=== PATIENT | male | born 1990 | race Caucasian/White ===

== ENCOUNTER 2016-08-04 09:43 | Inpatient (IN) | payer BC, OTHER ==
[~2016-08-04] VITALS: Ht 185.4 cm; Wt 63.5 kg
[~2016-08-04 09:43] MED LIST: DICY20TA28 PO; Gabapentin PO; HYDR-3895 PO; Ibuprofen PO; METH-33 PO; TRAZ-144 PO
[2016-08-04 11:15] VITALS: BP 109/63
[2016-08-04 12:00] VITALS: BP 109/63
[2016-08-04] MEDS ORDERED: MAGNESIUM HYDROXIDE 30 ML LIQUID UDC PO PRN (12:45)
[2016-08-04] MEDS ORDERED: DICYCLOMINE HCL 20 MG TABLET PO PRN (12:45)
[2016-08-04] MEDS ORDERED: MAG HYDROX/AL HYDROX/SIMETH 30 ML LIQUID UDC PO PRN (12:45)
[2016-08-04] MEDS ORDERED: ONDANSETRON ODT 4 MG TAB.RAPDIS SL PRN (12:45)
[2016-08-04] MEDS ORDERED: METHOCARBAMOL 750 MG TABLET PO PRN (12:45)
[2016-08-04] MEDS ORDERED: diphenhydrAMINE 50 MG CAPSULE PO PRN (12:45)
[2016-08-04] MEDS ORDERED: HYDROXYZINE PAMOATE 25 MG CAPSULE PO PRN (12:45)
[2016-08-04] MEDS ORDERED: PROMETHAZINE HCL 25 MG/1 ML VIAL IM PRN (12:45)
[2016-08-04] MEDS ORDERED: LORAZEPAM 1 MG TABLET PO PRN (12:45)
[2016-08-04] MEDS ORDERED: LORAZEPAM 2 MG/1 ML VIAL IM PRN (12:45)
[2016-08-04] MEDS ORDERED: CLONIDINE HCL 0.1 MG TABLET PO PRN (12:45)
[2016-08-04] MEDS ORDERED: MIRALAX 17 GM POWD.PACK PO PRN (12:45)
[2016-08-04] MEDS ORDERED: LOPERAMIDE HCL 2 MG CAPSULE PO PRN ×2 (12:45)
[2016-08-04] MEDS: GABAPENTIN 300 MG CAPSULE PO SCH ×2 (14:38→20:14)
[2016-08-04] MEDS: IBUPROFEN 600 MG TABLET PO PRN (14:39)
[2016-08-04] MEDS: BUPRENORPHINE HCL 2 MG TAB.SUBL SL PRN (14:39)
[2016-08-04] MEDS: LORAZEPAM 1 MG TABLET PO PRN ×2 (14:39→20:14)
[2016-08-04 16:00] VITALS: BP 122/69
[2016-08-04 16:30] LABS: *AMPHETAMINE, URINE NEGATIVE (NEGATIVE); *BARBITURATE, URINE NEGATIVE (NEGATIVE); *CANNABINOID, URINE POSITIVE (NEGATIVE); *COCCAINE, URINE NEGATIVE (NEGATIVE); *OPIATE, URINE POSITIVE (NEGATIVE); *PHENCYCLIDINE SCREEN,URINE NEGATIVE (NEGATIVE)
[2016-08-04 17:43] LABS: ETHANOL < 3 MG/DL (0-0)
[2016-08-04 17:44] LABS: ALANINE AMINOTRANSFERASE 22 U/L (16-63); ALBUMIN 4.6 g/dL (3.4-5.0); ALKALINE PHOSPHATASE 71 U/L (50-136); ASPARTATE AMINOTRANSFERASE 18 U/L (15-37); BILIRUBIN,TOTAL 0.6 mg/dL (0.2-1.0); CALCIUM 9.4 mg/dL (8.5-10.1); CARBON DIOXIDE 29 mmol/L (21-32); CHLORIDE 103 mmol/L (98-107); CREATININE 1.1 mg/dL (0.6-1.3); GFR 81 mL/min (>60); GLUCOSE 107 mg/dL (74-106); MAGNESIUM 2.1 mg/dL (1.8-2.4); POTASSIUM 4.6 mmol/L (3.5-5.1); SODIUM SERUM 140 mmol/L (136-145); TOTAL PROTEIN, SERUM 7.9 g/dL (6.4-8.2); UREA NITROGEN, BLOOD 15 mg/dL (7-18)
[2016-08-04 17:48] LABS: THYROID STIMULATING HORMONE 0.029 mIU/mL (0.358-3.740)
[2016-08-04 17:50] LABS: HIV-1 p24 ANTIGEN NON REACTIVE (NONREACTIVE); HIV-1/2 ANTIBODY NON REACTIVE (NONREACTIVE)
[2016-08-04 18:30] LABS: BASOPHILS % (AUTO) 0.4 % (0.0-2.0); EOSINOPHILS # (AUTO) 0.1 K/uL (0.0-0.7); EOSINOPHILS % (AUTO) 0.7 % (0.0-7.0); HEMATOCRIT 44.5 % (40.0-50.0); HEMOGLOBIN 14.4 g/dL (14.0-18.0); LYMPHOCYTES # (AUTO) 2.1 K/uL (0.8-4.8); LYMPHOCYTES % (AUTO) 22.8 % (20.5-51.5); MEAN CORPUSCULAR HEMOGLOBIN 27.5 uug (27.0-31.0); MEAN CORPUSCULAR HGB CONC 32 g/dL (32.0-37.0); MEAN CORPUSCULAR VOLUME 85.3 fL (82.0-92.0); MONOCYTES # (AUTO) 0.5 K/uL (0.1-1.30); MONOCYTES % (AUTO) 5.4 % (0.0-11.0); NEUTROPHILS # (AUTO) 6.3 K/uL (1.8-8.9); NEUTROPHILS % (AUTO) 70.7 % (38.5-71.5); PLATELET COUNT (AUTO) 274 K/uL (150-450); RED BLOOD CELL COUNT(AUTO) 5.22 MIL/uL (4.70-6.10); RED CELL DISTRIBUTION WIDTH 12.3 % (11.5-14.5)
[2016-08-04 20:00] VITALS: BP 99/60
[2016-08-04] MEDS: ACETAMINOPHEN 325 MG TABLET PO PRN (20:14)
[2016-08-04] MEDS ORDERED: TRAZODONE 50 MG TABLET PO SCH (22:15)
[2016-08-04] MEDS ORDERED: TRAZODONE 50 MG TABLET PO ONE (22:15)
[2016-08-04] MEDS ORDERED: TRAZODONE 50 MG TABLET ONE (22:28)
[2016-08-05 08:00] VITALS: BP 94/60
[2016-08-05] MEDS ORDERED: TUBERCULIN,PURIF.PROT.DERIV. 5 TU/0.1 ML TEST ID ONE (09:00)
[2016-08-05] MEDS: GABAPENTIN 300 MG CAPSULE PO SCH ×3 (09:04→20:26)
[2016-08-05] MEDS: MULTIVITAMINS,THERAPEUTIC TABLET PO SCH (09:05)
[2016-08-05] MEDS: IBUPROFEN 600 MG TABLET PO PRN ×2 (09:05→15:40)
[2016-08-05] MEDS: BUPRENORPHINE HCL 2 MG TAB.SUBL SL PRN (09:05)
[2016-08-05 12:00] VITALS: BP 111/73
[2016-08-05] MEDS ORDERED: TRAZODONE 50 MG TABLET PO PRN (12:15)
[2016-08-05] MEDS ORDERED: CYANOCOBALAMIN 1000 MCG/ML VIAL IM ONE (15:00)
[2016-08-05 15:10] LABS: *AMPHETAMINE, URINE NEGATIVE (NEGATIVE); *BARBITURATE, URINE NEGATIVE (NEGATIVE); *CANNABINOID, URINE POSITIVE (NEGATIVE); *COCCAINE, URINE NEGATIVE (NEGATIVE); *OPIATE, URINE POSITIVE (NEGATIVE); *PHENCYCLIDINE SCREEN,URINE NEGATIVE (NEGATIVE)
[2016-08-05] MEDS: DICYCLOMINE HCL 20 MG TABLET PO SCH ×2 (15:40→20:26)
[2016-08-05] MEDS: BACLOFEN 20 MG TABLET PO SCH ×2 (15:40→21:00)
[2016-08-05] MEDS: CLONIDINE HCL 0.1 MG TABLET PO SCH ×2 (15:40→21:00)
[2016-08-05 16:00] VITALS: BP 112/63
[2016-08-05 20:00] VITALS: BP 105/59
[2016-08-05] MEDS ORDERED: Baclofen PO (20:37)
[2016-08-05] MEDS ORDERED: CLON0.1T14 PO (20:37)
[2016-08-05] MEDS ORDERED: Ibuprofen PO (20:37)
[2016-08-05] MEDS: ACETAMINOPHEN 325 MG TABLET PO PRN (23:05)
[2016-08-06 08:00] VITALS: BP 111/79
[2016-08-06] MEDS: DICYCLOMINE HCL 20 MG TABLET PO SCH (09:04)
[2016-08-06] MEDS: GABAPENTIN 300 MG CAPSULE PO SCH (09:04)
[2016-08-06 09:05] VITALS: BP 111/75
[2016-08-06] MEDS: BACLOFEN 20 MG TABLET PO SCH (09:05)
[2016-08-06] MEDS: MULTIVITAMINS,THERAPEUTIC TABLET PO SCH (09:05)
[2016-08-06] MEDS: CLONIDINE HCL 0.1 MG TABLET PO SCH (09:05)
[2016-08-06 16:20] LABS: HCV AB <0.1 s/co ratio (0.0-0.9); HEPATITIS B CORE AB, IgM Negative (Negative); HEPATITIS B SURFACE AG Negative (Negative)
== END 2016-08-06 09:55 | disposition other institution (70) | DRG 895 ==
LOC: SRC 10:23
PROVIDERS: ADMIT Internal Medicine; ATTEND Internal Medicine
PROC: HZ2ZZZZ Detoxification Services for Substance Abuse Treatment (ICD-10-PCS; principal; 2016-08-04)
PROC: HZ31ZZZ Individual Counseling for Substance Abuse Treatment, Behavioral (ICD-10-PCS; 2016-08-05)
PROC: HZ41ZZZ Group Counseling for Substance Abuse Treatment, Behavioral (ICD-10-PCS; 2016-08-06)
DX: F11.23 Opioid dependence with withdrawal (principal); F13.239 Sedative, hypnotic or anxiolytic dependence with withdrawal, unspecified; F17.210 Nicotine dependence, cigarettes, uncomplicated; G47.00 Insomnia, unspecified; F41.9 Anxiety disorder, unspecified; F12.10 Cannabis abuse, uncomplicated; F32.9 Major depressive disorder, single episode, unspecified; E07.81 Sick-euthyroid syndrome; Z91.89 Other specified personal risk factors, not elsewhere classified
CPT/HCPCS: 36415; 70030-TC; 71010; 80307; 80346; 80349; 80361; 83735; 84443; 85025; 86580; 86592; 86705; 86803; 87340; 87806; A4663; G6040-TC; J3420

== ENCOUNTER 2016-09-24 17:48 | Inpatient (IN) | payer BC, OTHER ==
[~2016-09-24] VITALS: Ht 175.3 cm; Wt 76.2 kg
[~2016-09-24 17:48] MED LIST changes: +Baclofen PO; +CLON0.1T14 PO
[2016-09-24 19:42] VITALS: BP 128/76
--- NOTE | 2016-09-24 19:42 | NUR ---
ADMISSION NOTE Weight:168 lbs; Height: 5.9 VS: BP: 128/76; P: 95; Room Air O2Sat: 100%; RR:19; Pain 8-9 by 0-10 pain scale Allergy to Cat Full Code; Regular Diet; Fall and Seizures Precautions Patient is a 26 old male admitted to [facility] on 09/24/16 at 19:42 for Opioid Dependence. Patient reports History of Benzodiazepine withdrawal seizures. Past hospitalization/treatment was done in the [facility] on July,; [facility] on 06/07/2012 due to heroin overdose, requiring the use Narcan. The longest attempt at sobriety being for 8 months that ended nine months ago. Patient reports his participation on treatments at [facility] on 07/23/16-07/28/16. [facility]. Patient unable recall dates. Past Medical History: Anxiety Disorder; Depressive disorder; Chronic tobacco use; Opioid use disorder; Anxiolytic use disorder; Insomnia; History of Benzodiazepine withdrawal seizures; History of accidental polysubstance overdose. Past Surgical History: Right meniscus repair; Right ankle surgery. Substance use: Heroin smoke: " Current using 1 gram daily for the last three years of tar heroin via smoke inhalation. Last consumed this amount on 09/24/16 at 03:00". Patient also reports a Tobacco dependence. Upon initial assessment patient is alert and oriented x4. Stable gait. Speech soft and clear. Patient denies SI/HI. Patient is cooperative. COWS 10. Patient c/o anxiety; nervousness; tremors that felt; sweating, agitation, muscle aches, generalized pain, anhedonia, and fatigue. Patient denies N/V, and diarrhea. Patient c/o aching pain on his back 8-9 by 0-10 pain scale started at 19:00. Doctor Jhonny Barrera MD assessed patient. Ordered UDS test unable collected because patient can't voided at this time. Patient encouraged to increase PO fluid intake as tolerated. Breathing is even and unlabored. Lung Sounds clear bilaterally. Heart Rate is regular: no murmur noted. Patient denies SOB/heart pain. Skin is intact, warm and dry. BS is active in all x4 quadrants. Last BM was 09/24/16 in the morning. Skin is intact, warm and moist by touch. Patient oriented to floor and room, explained how to use call light. Patient verbalizing understanding. All safety measures in the place by hospital policy: Call light within reach; bed locked and in the lowest position; padded rails up x 2. Will continue to monitor.
[2016-09-24] MEDS ORDERED: MAGNESIUM HYDROXIDE 30 ML LIQUID UDC PO PRN (21:15)
[2016-09-24] MEDS ORDERED: diphenhydrAMINE 50 MG CAPSULE PO PRN (21:15)
[2016-09-24] MEDS ORDERED: ACETAMINOPHEN 325 MG TABLET PO PRN (21:15)
[2016-09-24] MEDS ORDERED: ONDANSETRON ODT 4 MG TAB.RAPDIS SL PRN (21:15)
[2016-09-24] MEDS ORDERED: LOPERAMIDE HCL 2 MG CAPSULE PO PRN ×2 (21:15)
[2016-09-24] MEDS ORDERED: MAG HYDROX/AL HYDROX/SIMETH 30 ML LIQUID UDC PO PRN (21:15)
[2016-09-24] MEDS ORDERED: DICYCLOMINE HCL 20 MG TABLET PO PRN (21:15)
[2016-09-24] MEDS ORDERED: MIRALAX 17 GM POWD.PACK PO PRN (21:15)
[2016-09-24] MEDS ORDERED: IBUPROFEN 600 MG TABLET PO PRN (21:15)
[2016-09-24] MEDS ORDERED: BUPRENORPHINE HCL 2 MG TAB.SUBL SL PRN (21:15)
[2016-09-24] MEDS ORDERED: ONDANSETRON 4 MG/2 ML VIAL IM PRN (21:15)
--- NOTE | 2016-09-24 21:25 | NUR ---
PRN BENADRYL PO ADMINISTRATION Patient c/o insomnia. Patient was assessed. Ordered PRN Benadryl PO was discussed with patient. Patient's educated for actions, adverse reactions, and side effects of Benadryl. Patient returned her knowledge back by verbalizing understanding. PRN Benadryl PO was administrated as ordered with full glass of water. Patient tolerated well. Safety measures in the place by hospital policy: Call light within reach; Bed in the lowest position and locked; Padded rails up x2. Will to monitor closely.
[2016-09-24] MEDS ORDERED: BUPRENORPHINE HCL 2 MG TAB.SUBL SL SCH (22:00)
[2016-09-24 22:03] LABS: BASOPHILS # (AUTO) 0.1 K/uL (0.0-8.0); BASOPHILS % (AUTO) 0.6 % (0.0-2.0); EOSINOPHILS # (AUTO) 0.2 K/uL (0.0-0.7); EOSINOPHILS % (AUTO) 2.5 % (0.0-7.0); HEMATOCRIT 42.9 % (40-50); HEMOGLOBIN 14.8 G/DL (14.0-18.0); LYMPHOCYTES # (AUTO) 2.8 K/uL (20.0-40.0); LYMPHOCYTES % (AUTO) 30.8 % (20.5-51.5); MEAN CORPUSCULAR HEMOGLOBIN 29.3 UUG (27.0-31.0); MEAN CORPUSCULAR HGB CONC 35 g/dL (32.0-37.0); MEAN CORPUSCULAR VOLUME 84.8 FL (82.0-92.0); MONOCYTES # (AUTO) 0.6 K/uL (2.0-10.0); MONOCYTES % (AUTO) 6.1 % (0.0-11.0); NEUTROPHILS # (AUTO) 5.3 K/uL (1.8-8.9); PLATELET COUNT (AUTO) 195 K/UL (150-450); RED BLOOD CELL COUNT(AUTO) 5.06 MIL/UL (4.7-6.1); RED CELL DISTRIBUTION WIDTH 12.2 % (11.5-14.5)
--- NOTE | 2016-09-24 22:25 | NUR ---
REASSESSMENT Patient is sleeping. Breathing is unlabored and even. RR:16. PRN Benadryl PO was effective. Safety measures in the place by hospital policy: Call light within reach; Bed in the lowest position and locked; Padded rails up x2. Will to monitor closely.
[2016-09-24 22:33] LABS: ETHANOL < 3 MG/DL (0-0)
[2016-09-24 22:34] LABS: ALANINE AMINOTRANSFERASE 21 U/L (16-63); ALKALINE PHOSPHATASE 59 U/L (50-136); AMYLASE 65 U/L (25-115); ASPARTATE AMINOTRANSFERASE 18 U/L (15-37); BILIRUBIN,TOTAL 0.3 mg/dL (0.2-1.0); CALCIUM 9.1 mg/dL (8.5-10.1); CARBON DIOXIDE 33 mmol/L (21-32); CHLORIDE 106 mmol/L (98-107); CREATININE 0.9 mg/dL (0.6-1.3); GFR 102 mL/min (>60); GLUCOSE 106 mg/dL (74-106); LIPASE 86 U/L (73-393); MAGNESIUM 1.9 mg/dL (1.8-2.4); POTASSIUM 4.2 mmol/L (3.5-5.1); SODIUM SERUM 143 mmol/L (136-145); TOTAL PROTEIN, SERUM 7.2 g/dL (6.4-8.2); UREA NITROGEN, BLOOD 7 mg/dL (7-18)
[2016-09-24] MEDS: HYDROXYZINE PAMOATE 25 MG CAPSULE PO PRN (22:39)
[2016-09-24] MEDS: METHOCARBAMOL 750 MG TABLET PO PRN (22:39)
--- NOTE | 2016-09-24 22:39 | NUR ---
PRN ROBAXIN PO AND PRN VISTARIL PO ADMINISTRATION Patient c/o increased anxiety and muscles spasm. Patient was assessed. Ordered PRN Robaxin PO and PRN Vistaril PO was discussed with patient. Patient's educated for actions, adverse reactions, and side effects of Robaxin and Vistaril . Patient returned her knowledge back by verbalizing understanding. PRN Robaxin PO and PRN Vistaril PO was administrated as ordered with full glass of water. Patient tolerated well. Safety measures in the place by hospital policy: Call light within reach; Bed in the lowest position and locked; Padded rails up x2. Will to monitor closely.
[2016-09-24 22:41] LABS: *AMPHETAMINE, URINE NEGATIVE (NEGATIVE); *BARBITURATE, URINE NEGATIVE (NEGATIVE); *CANNABINOID, URINE POSITIVE (NEGATIVE); *COCCAINE, URINE NEGATIVE (NEGATIVE); *OPIATE, URINE POSITIVE (NEGATIVE); *PHENCYCLIDINE SCREEN,URINE NEGATIVE (NEGATIVE)
[2016-09-24 22:45] LABS: HIV-1 p24 ANTIGEN NON REACTIVE (NONREACTIVE); HIV-1/2 ANTIBODY NON REACTIVE (NONREACTIVE); THYROID STIMULATING HORMONE 0.163 mIU/mL (0.358-3.740)
--- NOTE | 2016-09-24 23:39 | NUR ---
REASSESSMENT Patient is sleeping. Breathing is unlabored and even. RR: 14. PRN Benadryl PO was effective. Safety measures in the place by hospital policy: Call light within reach; Bed in the lowest position and locked; Padded rails up x2. Will to monitor closely.
[2016-09-25] VITALS: BP 125/74
[2016-09-25 04:00] VITALS: BP 121/74
--- NOTE | 2016-09-25 07:38 | NUR ---
END OF SHIFT NOTE Patient is a 26 old male admitted to [facility] on 09/24/16 at 19:42 for Opioid Dependence., placed on 5 Day Subutex starting on 09/25/16. Allergy to Cat dander; grass pollen. Full Code; Regular Diet; Fall and Seizures Precautions. Patient reports History of Benzodiazepine withdrawal seizures. Past hospitalization/treatment was done in the [facility] on July,; [facility] on 06/07/2012 due to heroin overdose, requiring the use Narcan. The longest attempt at sobriety being for 8 months that ended nine months ago. Patient reports his participation on treatments at [facility] on 07/23/16-07/28/16. [facility] [place]. Patient unable recall dates. Past Medical History: Anxiety Disorder; Depressive disorder; Chronic tobacco use; Opioid use disorder; Anxiolytic use disorder; Insomnia; History of Benzodiazepine withdrawal seizures; History of accidental polysubstance overdose. Past Surgical History: Right meniscus repair; Right ankle surgery. Substance use: Heroin smoke: " Current using 1 gram daily for the last three years of tar heroin via smoke inhalation. Last consumed this amount on 09/24/16 at 03:00". Patient also reports a Tobacco dependence. Patient denies SI/HI. Patient is cooperative.COWS decreased from 10 to 6. Patient presented with anxiety; agitation, nervousness; tremors that felt; sweating, muscle aches, generalized pain, anhedonia, and fatigue. Patient denies N/V, and diarrhea. Doctor Jhonny Barrera MD assessed patient. Patient encouraged to increase PO fluid intake as tolerated. Skin is intact, warm and moist by touch. PRN Benadryl PO, PRN Robaxin PO, PRN Vistaril PO were effective. Patient slept 10 hours, intake 500 ml, voided x2. Patient was encouraged fluids intake. Safety measure in the place by hospital policy: Call light within reach, bed in the lowest position and locked, padded rails up x2. Patient endorsed to day shift nurse in stable condition. SBAR report given.
--- NOTE | 2016-09-25 07:55 | NUR ---
START OF SHIFT Rcvd client in room, he is A/O x 4, he presents with anxious mood, flat affect, he reports chills, fatigue, clammy skin, goose bumps he denies nausea, vomiting or diarrhea. He denies any SI/HI. Encouraged increased fluid intake and activity as tolerated. Encouraged group therapy attendance. Per night time nanny nurse, client is a 26 year old male admitted for withdrawal from opioids. He is on modified 4 day Subutex, first dose today @ [address]. PMH Anxiety, Depression, Chronic tobacco use, Opioid use disorder, Anxiolytic use disorder, Cannabis use, unspecified, insomnia, History of withdrawal induced seizures, History of accidental polysubstance overdose. Last COWS 2 @ 0400. PRN Benadryl for inability to sleep, he slept 10 hrs. Robaxin generalized muscle pain, Vistaril for anxiety, noted effective. He is full code, regular diet, Allergies to cat dander, grass pollen. Client is on seizure precautions. Side rails X 2 up/padded, call light within reach, bed locked in lowest positions. Will continue with plan of care
[2016-09-25] MEDS: MULTIVITAMINS,THERAPEUTIC TABLET PO SCH (08:32)
[2016-09-25] MEDS: GABAPENTIN 300 MG CAPSULE PO SCH ×3 (08:32→20:00)
--- NOTE | 2016-09-25 08:33 | NUR ---
TB test administered to Left F/A, client tolerated well.
[2016-09-25 08:38] VITALS: BP 113/75
[2016-09-25] MEDS: METHOCARBAMOL 750 MG TABLET PO PRN ×2 (08:41→21:58)
[2016-09-25] MEDS: CLONIDINE HCL 0.1 MG TABLET PO PRN (08:41)
--- NOTE | 2016-09-25 08:41 | NUR ---
PRN Clonidine, Robaxin Client appears irritable, reports anxiety, chills and generalized muscle pain 8/10, Above meds given respectively. Call light within reach. Will continue to monitor.
[2016-09-25] MEDS ORDERED: TUBERCULIN,PURIF.PROT.DERIV. 5 TU/0.1 ML TEST ID ONE (09:00)
[2016-09-25] MEDS ORDERED: BUPRENORPHINE HCL 2 MG TAB.SUBL SL SCH (09:00)
--- NOTE | 2016-09-25 09:41 | NUR ---
Reassessment PRN Clonidine, Sumanth Client appears less irritable, He stated 'I feel a little bit better, less anxious" generalized muscle pain 2/10, but tolerable. Above meds effective. Call light within reach. Will continue to monitor.
[2016-09-25] MEDS ORDERED: LORAZEPAM 2 MG/1 ML VIAL IM PRN (11:30)
[2016-09-25] MEDS ORDERED: LORAZEPAM 1 MG TABLET PO PRN ×2 (11:30)
[2016-09-25 12:00] VITALS: BP 116/68
[2016-09-25] MEDS: BUPRENORPHINE HCL 2 MG TAB.SUBL SL SCH ×3 (12:15→20:00)
[2016-09-25] MEDS: LORAZEPAM 1 MG TABLET PO SCH ×3 (12:15→19:59)
--- NOTE | 2016-09-25 15:23 | NUR ---
START OF SHIFT [facility] client in room, he is A/O x 4, he presents with anxious mood, flat affect, he reports chills, fatigue, clammy skin, goose bumps he denies nausea, vomiting or diarrhea. He denies any SI/HI. Encouraged increased fluid intake and activity as tolerated. Encouraged group therapy attendance. Per night auditor nurse, client is a 26 year old male admitted for withdrawal from opioids. He is on modified 4 day Subutex, first dose today @ [address]125. PMH Anxiety, Depression, Chronic tobacco use, Opioid use disorder, Anxiolytic use disorder, Cannabis use, unspecified, insomnia, History of withdrawal induced seizures, History of accidental polysubstance overdose. Last COWS 2 @ 0400. PRN Benadryl for inability to sleep, he slept 10 hrs. Robaxin generalized muscle pain, Vistaril for anxiety, noted effective. He is full code, regular diet, Allergies to cat dander, grass pollen. Client is on seizure precautions. Side rails X 2 up/padded, call light within reach, bed locked in lowest positions. Will continue with plan of care Addendum: 09/25/16 at 1524 by MIGUEL LUNA RN wrong time
[2016-09-25 16:34] VITALS: BP 109/60
--- NOTE | 2016-09-25 19:06 | NUR ---
END OF SHIFT Endorsed client to incoming nurse, he is in room, he is A/O x 4, he presents with depressed mood, flat affect, he denies nausea, vomiting or diarrhea. He denies any SI/HI. Adequate intake 1545mL and output void x 2, stool x 2. Client was not compliant with group therapy. Admitted for withdrawal from opioids. He is on modified 4 day Subutex, 5 day Ativan, tolerating well. History of withdrawal induced seizures. Last COWS 8/CIWA 7 @ 1600. PRN Robaxin 750mg muscle pain, Clonidine for anxiety, noted effective. He is full code, regular diet, Allergies to cat dander, grass pollen. Client is on seizure precautions. Side rails X 2 up/padded, call light within reach, bed locked in lowest positions.
--- NOTE | 2016-09-25 19:06 | NUR ---
START OF SHIFT NOTE Patient endorsed by day shift nurse,KADI report received Patient is a 26 old male admitted to [facility] on 09/24/16 at 19:42 for Opioid Dependence., placed on 5 Day Ativan and 5 Day Subutex Taper since on 09/25/16. First dose of Ativan PO given as ordered 09/25/16 at 12:00. First dose of Subutex PO given 09/25/16 at 09:00. Patient tolerated well. Patient reported Allergy to Cat dander and Grass Pollen. Patient placed on Full Code; Regular Diet; Fall and Seizures Precautions. Patient reports History of Benzodiazepine withdrawal seizures. Past hospitalization/treatment was done in the [facility] on July,; [facility] on 06/07/2012 due to heroin overdose, requiring the use Narcan. The longest attempt at sobriety being for 8 months that ended nine months ago. Patient reports his participation on treatments at [facility] on 07/23/16-07/28/16. [facility]. Patient unable recall dates. Past Medical History: Anxiety Disorder; Depressive disorder; Chronic tobacco use; Opioid use disorder; Anxiolytic use disorder; Insomnia; History of Benzodiazepine withdrawal seizures; History of accidental polysubstance overdose. Past Surgical History: Right meniscus repair; Right ankle surgery. Substance use: Heroin smoke: " Current using 1 gram /Day for the last three years of tar heroin via smoke inhalation. Last consumed this amount on 09/24/16 at 03:00". Patient also reports a Alprazolam PO "2 MG/day during last 6 weeks. Last use on 09/23/16". Patient denies SI/HI. Patient is cooperative. COWS 8, CIWA 7. Patient's anxiety; agitation, nervousness; tremors that felt; sweating, muscle aches, generalized pain, nausea, fatigue. Patient denies vomiting, and diarrhea. Patient encouraged to attend activities, and to increasing oral fluids. All safety measures in the place by hospital policy: Call light within reach; bed locked and in the lowest position; padded rails up x 2. Will continue to monitor.
[2016-09-25 20:00] VITALS: BP 110/64
--- NOTE | 2016-09-25 21:13 | NUR ---
PRN ZOFRAN PO ADMINISTRATION Patient c/o N/Vx2. Patient was assessed. VS WNL:T:98'6; HR:86; BP:108/64; RR:18. Ordered PRN Zofran PO was discussed with patient. Patient's educated for actions, adverse reactions, and side effects of Zofran. Patient returned her knowledge back by verbalizing understanding. PRN Zofran PO was administrated as ordered with full glass of water. Patient tolerated well. Safety measures in the place by hospital policy: Call light within reach. Bed in the lowest position and locked.Padded rails up x2. Will to monitor closely.
[2016-09-25] MEDS: HYDROXYZINE PAMOATE 25 MG CAPSULE PO PRN (21:58)
[2016-09-25] MEDS: TRAZODONE 50 MG TABLET PO PRN (21:58)
--- NOTE | 2016-09-25 21:58 | NUR ---
PRN ROBAXIN PO , PRN VISTARIL PO, AND PRN TRAZODONE PO ADMINISTRATION Patient c/o increased anxiety, muscles spasm, and insomnia. Patient was assessed. VS WNL. Ordered PRN Robaxin PO ,PRN Vistaril PO, and PRN Trazodone PO was discussed with patient. Patient's educated for actions, adverse reactions, and side effects of Robaxin,Vistaril, and Trazodone. Patient returned her knowledge back by verbalizing understanding. PRN Robaxin PO, PRN Vistaril PO,and PRN Trazodone PO administrated as ordered with full glass of water. Patient tolerated well. Safety measures in the place by hospital policy: Call light within reach; Bed in the lowest position and locked; Padded rails up x2. Will to monitor closely.
--- NOTE | 2016-09-25 22:15 | NUR ---
REASSESSMENT Patient reassessed. Nausea and emesis ceased. Patient encouraged to drink plenty fluids. Safety measures in the place by hospital policy: Call light within reach; Bed in the lowest position and locked; Padded rails up x2. Will to monitor closely.
--- NOTE | 2016-09-25 22:58 | NUR ---
REASSESSMENT Patient is sleeping. Breathing is unlabored and even. RR: 16. PRN Robaxin PO, PRN Vistaril PO, and PRN Trazodone PO were effective. Safety measures in the place by hospital policy: Call light within reach; Bed in the lowest position and locked; Padded rails up x2. Will to monitor closely.
--- NOTE | 2016-09-26 | NUR ---
VS/COWS/CIWA Deferred Assessment deferred d/t patient refusal, patient is sleeping. No S/S of distress noted. Breathing is unlabored and even. Safety measure in the place by hospital policy: Call light within reach, bed in the lowest position and locked, padded rails up x2. Will continue to monitor.
[2016-09-26 04:00] VITALS: BP 90/45
--- NOTE | 2016-09-26 07:16 | NUR ---
END OF SHIFT NOTE Patient is a 26 old male admitted to [facility] on 09/24/16 at 19:42 for Benzodiazepines and Opioid Withdrawal, placed on 5 Day Subutex on 09/25/16. Allergy to Cat dander and Grass Pollen. Full Code; Regular Diet; Fall and Seizures Precautions. History of Benzodiazepine withdrawal seizures. Past Hospitalization/Treatment was done in the [facility] on July,; [facility] on 06/07/2012 due to heroin overdose, requiring the use Narcan. The longest attempt at sobriety being for 8 months that ended nine months ago. Treatments at [facility] on 07/23/16-07/28/16. [facility] Patient unable recall dates. PMH: Anxiety; Depressive disorder; Chronic tobacco use; Opioid use disorder; Anxiolytic use disorder; Insomnia; History of Benzodiazepine withdrawal seizures; History of accidental polysubstance overdose. Past Surgical History: Right meniscus repair; Right ankle surgery. Substance use: Heroin smoke: " Current using 1 gram/Day since 2013. Last three years of tar heroin via smoke inhalation. Last use 0.5 grams on 09/24/16 at 03:00". Patient also reports a Tobacco dependence. Patient denies SI/HI. Patient is cooperative. COWS decreased from 7 @ 20:00 to 5 @ 04:00.CIWA decreased from 7@ 20:00 to 4 @ 04:00. Patient attended group activities Patient presented with anxiety; agitation, nervousness; N/V, stomach cramps, sweating, muscle aches, very mild headache. Patient denied diarrhea. Patient encouraged to increase PO fluid intake as tolerated. Patient denied SI/HI. VS at 04:00: BP: 93/58; HR: 58; O2Sat: 96%; RR: 12. Pain Level : "0/10". Skin is intact, warm and moist by touch. Patient attended activities. PRN Trazodone PO, PRN Robaxin PO, PRN Vistaril PO, and PRN Zofran PO were effective. Patient remains compliant with therapeutic plan, medications, and diet regime. Patient slept 7 hours, intake 474ml, voided x2. All needs met. Safety measures in the place by hospital policy: Call light within reach, bed in the lowest position and locked, padded rails up x2. Patient endorsed to day shift nurse in stable condition. SBAR report given.
--- NOTE | 2016-09-26 07:45 | NUR ---
START OF SHIFT Rcvd client in room, he is A/O x 4, he presents with anxious mood,he reports sweats, restless legs, decreased appetite, he denies nausea, vomiting or diarrhea. He denies any SI/HI. Encouraged increased fluid intake and activity as tolerated. Encouraged group therapy attendance. Per date night caregiver nurse, client is a 26 year old male admitted for withdrawal from opioids. He is on modified 4 day Subutex/ 5 day Ativan, tolerating well. History of withdrawal induced seizures. Last COWS 5/CIWA 4 @ 0400. PRN Trazodone for inability to sleep, he slept 7 hrs. Robaxin generalized muscle pain, Vistaril for anxiety, noted effective. He is full code, regular diet, Allergies to cat dander, grass pollen. Client is on seizure precautions. Side rails X 2 up/padded, call light within reach, bed locked in lowest positions. Will continue with plan of care
[2016-09-26] MEDS: BUPRENORPHINE HCL 2 MG TAB.SUBL SL SCH ×3 (08:36→20:04)
[2016-09-26] MEDS: GABAPENTIN 300 MG CAPSULE PO SCH ×3 (08:36→20:05)
[2016-09-26] MEDS: LORAZEPAM 1 MG TABLET PO SCH ×4 (08:36→20:05)
[2016-09-26] MEDS: MULTIVITAMINS,THERAPEUTIC TABLET PO SCH (08:36)
[2016-09-26] MEDS: ESCITALOPRAM OXALATE 10 MG TABLET PO SCH (08:36)
[2016-09-26 08:38] VITALS: BP 121/78
[2016-09-26 08:43] LABS: CALCIUM 9.3 mg/dL (8.5-10.1); MAGNESIUM 1.9 mg/dL (1.8-2.4); POTASSIUM 4.2 mmol/L (3.5-5.1)
[2016-09-26] MEDS ORDERED: BUPRENORPHINE HCL 2 MG TAB.SUBL SL SCH ×2 (09:00→15:00)
[2016-09-26 10:03] LABS: THYROID STIMULATING HORMONE 0.054 mIU/mL (0.358-3.740)
[2016-09-26 10:10] LABS: HCV AB <0.1 s/co ratio (0.0-0.9); HEPATITIS B CORE AB, IgM Negative (Negative); HEPATITIS B SURFACE AG Negative (Negative)
[2016-09-26 12:00] VITALS: BP 136/69
--- NOTE | 2016-09-26 14:02 | NUR ---
MD COMMUNICATION/CRISIS TEAM NOTIFICATION Patient was on the phone with his sister and corrections caseworker Breanna as a witness. Pt got agitated with his sister because she was encouraging him to go to treatment. He told his sister "consider this my last goodbye" and hung up the phone. He then turned and said to corrections caseworker "I'm leaving now. You can either let me off the unit with my things or find me in my room. The choice is yours." physiotherapy practice manager immediately contacted charge nurse and SERVICE STATION MANAGER type disk quality control supervisor, and administrative staff, and medical doctors. Pt is on a 1:1. Dr. Napier notified and reported to call CRISIS team. Lisa from Crisis team notified and said she will arrive in 30-45 minutes. Pt remains on a 1:1 at this time. Will be continued to be monitored closely.
[2016-09-26] MEDS: HYDROXYZINE PAMOATE 25 MG CAPSULE PO PRN (15:26)
[2016-09-26] MEDS: CLONIDINE HCL 0.1 MG TABLET PO PRN (15:26)
--- NOTE | 2016-09-26 15:26 | NUR ---
PRN Clonidine 0.1mg, Vistaril 25mg Client appears anxious, Vistaril administered, he is irritable, increased P 107 Clonidine administered. Will continue to monitor. Client is on a 1:1 sitter promoting safety.
--- NOTE | 2016-09-26 15:55 | NUR ---
5150 Pt was placed on a 5150 DTS, per Lisa after crisis evaluation. Pt was determined to have intent to hurt self. Case was discussed with Dr. Napier and pt will be transferred to [facility] adult psychiatric, under the care of Dr. Napier. Pt was advised of his status, waiting for bed availability at this time. Addendum: 09/26/16 at 1829 by ABBE MACE RN Continues on a 1:1 sitter at this time. Pt remains safe.
[2016-09-26 16:00] VITALS: BP 129/79
--- NOTE | 2016-09-26 16:26 | NUR ---
Reassessment PRN Clonidine 0.1mg, Vistaril 25mg Client appears less anxious, he is in bed, watching TV P 89 Clonidine and Vistaril effective. Client is on a 1:1 sitter promoting safety.
--- NOTE | 2016-09-26 19:00 | NUR ---
END OF SHIFT Endorsed client to incoming nurse, he is in room, he is A/O x 4, he presents with depressed mood, flat affect, he denies nausea, vomiting or diarrhea. He is on 1:1 sitter promoting safety. Adequate intake 2152mL and output void x 2, stool x 1. Client was compliant with 1/3 group therapy. Admitted for withdrawal from opioids. He is on modified 4 day Subutex, 5 day Ativan, tolerating well. History of withdrawal induced seizures. Last COWS 10/CIWA 8 @ 1600. PRN Clonidine and Vistaril for anxiety, noted effective. He is full code, regular diet, Allergies to cat dander, grass pollen. Client is on seizure precautions. Side rails X 2 up/padded, call light within reach, bed locked in lowest positions.
--- NOTE | 2016-09-26 19:00 | NUR ---
START OF SHIFT NOTE Patient endorsed by day shift nurse.SBAR report received. Patient is a 26 old male admitted to [facility] on 09/24/16 at 19:42 for Opioid Dependence., placed on 5 Day Ativan and 5 Day Subutex Taper since on 09/25/16. First dose of Ativan PO given as ordered 09/25/16 at 12:00. First dose of Subutex PO given 09/25/16 at 09:00. Patient tolerated well. Patient reported Allergy to Cat dander and Grass Pollen. Patient placed on Full Code; Regular Diet; Fall and Seizures Precautions. Patient reports History of Benzodiazepine withdrawal seizures. Past hospitalization/treatment was done in the [facility] on July,; [facility] on 06/07/2012 due to heroin overdose, requiring the use Narcan. The longest attempt at sobriety being for 8 months that ended nine months ago. Patient reports his participation on treatments at [facility] on 07/23/16-07/28/16. [facility]. Patient unable recall dates. Past Medical History: Anxiety Disorder; Depressive disorder; Chronic tobacco use; Opioid use disorder; Anxiolytic use disorder; Insomnia; History of Benzodiazepine withdrawal seizures; History of accidental polysubstance overdose. Past Surgical History: Right meniscus repair; Right ankle surgery. Substance use: Heroin smoke: " Current using 1 gram /Day for the last three years of tar heroin via smoke inhalation. Last consumed this amount on 09/24/16 at 03:00". Patient also reports a Alprazolam PO: "2mg /day during last 2 weeks. Last used on 09/23/16". Upon endorsement, day shift nurse reported patient verbalized SI/HI. 1:1 sitter at bedside with patient for safety, as ordered. Patient assessed. Patient is alert and oriented x4. Speech is soft and clear. VS WNL Patient is cooperative. COWS 7, CIWA 7. Patient presented with anxiety, agitation, nervousness, tremors, sweating, muscle aches, generalized pain, fatigue. Patient denies vomiting, and diarrhea. Patient encouraged to attend activities, and to increasing oral fluids. All safety measures in the place by hospital policy: Call light within reach; bed locked and in the lowest position; padded rails up x 2. Will continue to monitor.
[2016-09-26 20:00] VITALS: BP 117/69
--- NOTE | 2016-09-26 20:30 | NUR ---
CRISIS FOLLOW UP Followed up Crisis Intervention regarding 5150 status. Crisis Intervention stated to follow up with [facility]. [facility] stated that "No Beds available for now". Followed up with Dr. Napier . "Patient will to stay in unit for one more day." Patient denies suicidal plans at this time. 1:1 sitter at bedside with patient for safety, as ordered.
[2016-09-26] MEDS: TRAZODONE 50 MG TABLET PO PRN (21:06)
--- NOTE | 2016-09-26 21:06 | NUR ---
PRN TRAZODONE PO ADMINISTRATION Patient c/o insomnia, and asked PRN Trazodone PO. Patient was assessed. VS WNL. Patient was educated for actions, adverse reactions, and side effects of Trazodone.Patient returned back her knowledge by verbalizing understanding. PRN Trazodone PO was administrated as ordered with full glass of water. Patient tolerated well. Safety measure in the place by hospital policy: Call light within reach, bed in the lowest position and locked, padded rails up x2. 1:1 sitter at bedside with patient for safety,as ordered. Will continue to monitor closely.
--- NOTE | 2016-09-26 22:06 | NUR ---
REASSESSMENT Patient is sleeping. Breathing is unlabored and even. RR:14 PRN Trazodone PO was effective. Safety measures in the place by hospital policy: Call light within reach; Bed in the lowest position and locked; Padded rails up x2. Will to monitor closely. 1:1 sitter at bedside with patient for safety,as ordered.
[2016-09-27] VITALS: BP 102/57
[2016-09-27 04:00] VITALS: BP 102/55
--- NOTE | 2016-09-27 07:13 | NUR ---
END OF SHIFT NOTE Patient is a 26 old male admitted to [facility] on 09/24/16 for Benzodiazepines and Opioid Withdrawal, placed on 5 Day Subutex on 09/25/16. Patient allergic to Cat dander and Grass Pollen. Patient placed on Full Code; Regular Diet; Fall and Seizures Precautions. History of Benzodiazepine withdrawal seizures. PMH: Anxiety; Depressive disorder; Chronic tobacco use; Opioid use disorder; Anxiolytic use disorder; Insomnia; History of Benzodiazepine withdrawal seizures; History of accidental polysubstance overdose. Past Surgical History: Right meniscus repair; Right ankle surgery. Patient is cooperative. 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 CIWA decreased from 7 @ 20:00 to 3 @ 04:00. Patient presented with anxiety; agitation, tachycardia, nervousness; sweating, bones aches, headache. Patient denied N/V, diarrhea. Patient encouraged to increase PO fluid intake as tolerated. VS at 04:00:T: 98'1; BP:102/55; HR:77; O2Sat: 97%; RR: 16. Pain Level :"0/10". Skin is intact, warm and moist by touch. Patient attended activities. PRN Trazodone PO was effective. Patient remains compliant with therapeutic plan, medications, and diet regime. Patient slept 9 hours, intake 1398 ml, voided x3. Followed up Crisis Intervention regarding [address] Napier: "Patient will to stay in unit for one more day." Patient denies suicidal plans at this time. All needs met. Safety measures in the place by hospital policy: Call light within reach, bed in the lowest position and locked, padded rails up x2. 1:1 sitter at bedside for safety as ordered. Patient endorsed to day shift nurse in stable condition. SBAR report given.
--- NOTE | 2016-09-27 07:45 | NUR ---
START OF SHIFT Rcvd client in room, he is A/O x 4, he presents with anxious mood, flat affect, he reports chills, stomach cramps, decreased appetite, he denies N/V/D. He denies any SI/HI. Sitter at bedside promoting safety. Encouraged increased fluid intake and activity as tolerated. Encouraged group therapy attendance. Per clothing manager nurse, client was placed on a 5150 DTS, per Lisa after crisis evaluation on 09/26/16 @ 1555 Pt was determined to have intent to hurt self. Case was discussed with Dr. Napier, client will be transferred to [facility], under the care of Dr. Napier. client was advised of his status, waiting for bed availability at this time. Client admitted for withdrawal from opioids. He is on modified 4 day Subutex/ 5 day Ativan, tolerating well. History of withdrawal induced seizures. Last COWS 3/CIWA 2 @ 0400. PRN Trazodone for inability to sleep, he slept 9 hrs. He is full code, regular diet, Allergies to cat dander, grass pollen. Client is on seizure precautions. Side rails X 2 up/padded, call light within reach, bed locked in lowest positions. Will continue with plan of care
[2016-09-27 08:20] VITALS: BP 122/65
[2016-09-27] MEDS: LORAZEPAM 1 MG TABLET PO SCH ×3 (08:24→20:25)
[2016-09-27] MEDS: GABAPENTIN 300 MG CAPSULE PO SCH ×3 (08:24→20:25)
[2016-09-27] MEDS: ESCITALOPRAM OXALATE 10 MG TABLET PO SCH (08:24)
[2016-09-27] MEDS: MULTIVITAMINS,THERAPEUTIC TABLET PO SCH (08:24)
--- NOTE | 2016-09-27 08:33 | NUR ---
Zero induration noted at Left F/A TB site.
[2016-09-27] MEDS ORDERED: BUPRENORPHINE HCL 2 MG TAB.SUBL SL SCH ×2 (09:00)
--- NOTE | 2016-09-27 12:09 | NUR ---
MD COMMUNICATION Per Dr. Napier, pt no longer needs a 1:1 sitter. Pt denies SI/HI or hallucinations. Pt 5[address] d[address] Dr[address] Napier. Pt is stable at this time.
[2016-09-27 13:20] VITALS: BP 125/79
[2016-09-27] MEDS: HYDROXYZINE PAMOATE 25 MG CAPSULE PO PRN (13:32)
[2016-09-27] MEDS: CLONIDINE HCL 0.1 MG TABLET PO PRN (13:33)
[2016-09-27] MEDS: METHOCARBAMOL 750 MG TABLET PO PRN (13:33)
--- NOTE | 2016-09-27 13:33 | NUR ---
PRN Robaxin. Clonidine, Vistaril Client reports generalized muscle pain 9/10 Robaxin 750mg PO administered. He appears anxious, MB P 101 Vistaril 25mg Po administered. He reports chills, irritability, sweats Clonidine 0.1mg PO administered. Risk/benefits discuss, he verbalized understanding. Call light within reach.
[2016-09-27] MEDS: BUPRENORPHINE HCL 2 MG TAB.SUBL SL SCH ×2 (14:17→20:26)
--- NOTE | 2016-09-27 14:33 | NUR ---
Reassessment PRN Robaxin. Clonidine, Vistaril Client reports relief from generalized muscle pain 2/10, but tolerable, Robaxin 750mg effective He is sitting in bed, calmly watching TV, P 80, Vistaril 25mg effective. He appears calm,. dry skin, Clonidine 0.1mg effective. Call light within reach.
[2016-09-27 16:10] VITALS: BP 113/64
--- NOTE | 2016-09-27 18:35 | NUR ---
Client's sister Sana called, update her on current status of her brother, she verbalized "Under no circumstance es he coming to live with me, if he does not go to treatment after his detox." She request to not inform her brother of her call, because it's a trigger for him to start acting out.
--- NOTE | 2016-09-27 19:04 | NUR ---
END OF SHIFT Endorsed client to incoming nurse, he is in room, he is A/O x 4, noted depressed mood, flat affect, he denies any SI/HI. Adequate intake 1750mL and output void x 3, stool x 2. Client was compliant with 1/3 group therapy. Admitted for withdrawal from opioids. He continues on modified 4 day Subutex, 5 day Ativan, to assist with withdrawal symptoms. History of withdrawal induced seizures. Last COWS 5/CIWA 4 @ 1600. PRN Clonidine chills, irritability and Vistaril for anxiety, Robaxin for generalized muscle pain 9/10 decreased to 3/10, noted effective. He is full code, regular diet, Allergies to cat dander, grass pollen. Client is on seizure precautions. Side rails X 2 up/padded, call light within reach, bed locked in lowest positions.
[2016-09-27 20:00] VITALS: BP 115/74
--- NOTE | 2016-09-27 20:12 | NUR ---
START OF SHIFT NOTE Pt is a 26 y/o male admitted for Heroin and Xanax dependence and use. Pt has an allergy to cats and reported a PMH of anxiety, depression, opioid use disorder, insomnia, meniscus repair and ankle surgery. Per day shift nurse pt was placed on a 5 day Ativan taper and a 5 day Subutex taper and is tolerating medication well with no s/e or a/r reported. Pt received Vistaril, Clonidine, and Robaxin PRNS during the day shift. Last COW: 5 and CIWA: 4 (1600). At this time pt is in his room watching television. Pt stated " I'm okay. Today was fine. I attended my meetings. " Pt denies any pain/discomfort at this time. Pt was encouraged to notify staff of any changes in condition or of any concerns. Pt verbalized an understanding. All safety measures in place; side rails up x 2, bed locked and in low position, and call light within reach. Will continue to monitor.
--- NOTE | 2016-09-27 20:25 | NUR ---
MOTRIN PRN ADMINISTRATION Pt stated " My legs are hurting. Right now it's about a 7/10. pain. Can I get something for it ? " Motrin 600 mg PO PRN was given. Pt was encouraged to notify staff of any changes in condition or of any concerns. Pt verbalized an understanding. All safety measures in place. Will monitor for effectiveness.
--- NOTE | 2016-09-27 21:25 | NUR ---
ANGEL PRN REASSESSMENT Pt stated " My legs feel much better. It's not even a 3/10 right now." PRN effective. Pt was encouraged to notify staff of any changes in condition or of any concerns. Pt verbalized an understanding. All safety measures in place. Will continue to monitor.
[2016-09-27] MEDS: TRAZODONE 50 MG TABLET PO PRN (22:04)
--- NOTE | 2016-09-27 22:04 | NUR ---
TRAZODONE PRN ADMINISTRATION Pt stated " I'm ready to go to bed. Can I have my sleeper now?" Trazodone 50 mg PO PRN was given. Pt was encouraged to notify staff of any changes in condition or of any concerns. Pt verbalized an understanding. All safety measures in place. Will monitor for effectiveness.
--- NOTE | 2016-09-27 23:04 | NUR ---
TRAZODONE PRN REASSESSMENT Pt is asleep in bed with no signs of discomfort/distress noted. Pt's breathing is even and unlabored. Respirations are 16 breaths per minute. Pt is easily aroused with light touch. Pt stated " I fell asleep like 20 minutes ago." PRN effective. Pt was encouraged to notify staff of any changes in condition or of any concerns. Pt verbalized an understanding. All safety measures in place. Will continue to monitor.
--- NOTE | 2016-09-28 | NUR ---
COW,CIWA, AND VITALS REFUSED Pt refused to be assessed and have vitals taken at this time. Pt was encouraged x 3 with risks and benefits explained, but the pt still declined. All safety measures in place. Will continue to monitor. Addendum: 09/28/16 at 0653 by TY ANDRADE LVN Amended: Links added.
--- NOTE | 2016-09-28 04:00 | NUR ---
COW, CIWA, AND VITALS REFUSED Pt refused to be assessed and have vitals taken at this time. Pt was encouraged x 3 with risks and benefits explained, but the pt still declined. All safety measures in place. Will continue to monitor. Addendum: 09/28/16 at 0656 by TY ANDRADE LVN Amended: Links added.
--- NOTE | 2016-09-28 07:01 | NUR ---
Start of Shift Endorsement received from nightshift nurse. Pt is a 26 y/o male admitted for heroin and Xanax dependence. PT has been placed on a 5 day Ativan and 5 day Subutex taper. Pt reports Hx of a benzo withdrawal seizures. PT is tolerating the taper, moderately withdrawing at this time AEB COWS 7 and CIWA 4. PRN Motrin and Trazodone were administered during nightshift. PT reports sleeping 8 hours. Pt reports readiness for sobriety. PT is alert and oriented x4. Pt is in STABLE condition at this time. Remains compliant with medication and diet regimen. All needs have been met, All safety measures in place per hospital policy. Bed in lowest position, side rails up x2, call-light within reach. Will continue to monitor
--- NOTE | 2016-09-28 07:23 | NUR ---
END OF SHIFT NOTE Pt is a 26 y/o male admitted for Heroin and Xanax dependence and use. Pt has an allergy to cats and reported a PMH of anxiety, depression, opioid use disorder, insomnia, meniscus repair and ankle surgery. Pt was placed on a 5 day Ativan taper and a 5 day Subutex taper and is tolerating medication well with no s/e or a/r reported. Pt received Motrin 600 mg PO PRN and Trazodone 50 mg PO PRN during the shift. Last COW: 7 and CIWA: 4 (1999). Pt slept for a total of 8 hours. All safety measures in place; side rails up x 2, bed locked and in low position, and call light within reach. Endorsed to the oncoming nurse.
[2016-09-28 08:00] VITALS: BP 119/71
[2016-09-28] MEDS: BUPRENORPHINE HCL 2 MG TAB.SUBL SL SCH ×3 (08:42→20:22)
[2016-09-28] MEDS: MULTIVITAMINS,THERAPEUTIC TABLET PO SCH (08:42)
[2016-09-28] MEDS: ESCITALOPRAM OXALATE 10 MG TABLET PO SCH (08:42)
[2016-09-28] MEDS: LORAZEPAM 1 MG TABLET PO SCH ×2 (08:43→20:22)
[2016-09-28] MEDS: GABAPENTIN 300 MG CAPSULE PO SCH ×3 (08:43→20:21)
[2016-09-28] MEDS ORDERED: BUPRENORPHINE HCL 2 MG TAB.SUBL SL SCH (09:00)
[2016-09-28 12:00] VITALS: BP 119/65
[2016-09-28 16:00] VITALS: BP 133/84
[2016-09-28] MEDS: HYDROXYZINE PAMOATE 25 MG CAPSULE PO PRN (18:45)
--- NOTE | 2016-09-28 18:45 | NUR ---
PRN VISTARIL PT reports moderate anxiety, rates 5/10, administered Vistaril per MD orders.
--- NOTE | 2016-09-28 19:09 | NUR ---
End of Shift Endorsement given to nightshift nurse. Pt is a 26 y/o male admitted for heroin and Xanax dependence. PT has been placed on a 5 day Ativan and 5 day Subutex taper. Pt reports Hx of a benzo withdrawal seizures. PT is tolerating the taper, mildly withdrawing at this time AEB COWS 4 and CIWA 4. PRN Vistaril was administered for moderate anxiety of 5/10, medication was effective. Educated pt on deep breathing technique and encouraged pt to attend groups and activities. Intake: 2100, Void x6, BM x1. PT is alert and oriented x4. Pt is in STABLE condition at this time. Remains compliant with medication and diet regimen. All needs have been met, All safety measures in place per hospital policy. Bed in lowest position, side rails up x2, call-light within reach. Will continue to monitor
--- NOTE | 2016-09-28 19:20 | NUR ---
Medication Re-assessment Pt reports relief from anxiety, rates it 06/02. Medication was effective.
--- NOTE | 2016-09-28 19:26 | NUR ---
START OF SHIFT NOTE Pt is a 26 y/o male admitted for Heroin and Xanax dependence and use. Pt has an allergy to cats and reported a PMH of anxiety, depression, opioid use disorder, insomnia, meniscus repair and ankle surgery. Per day shift nurse pt continues on a 5 day Ativan taper and a 5 day Subutex taper and is tolerating medication well with no s/e or a/r reported. Pt received Vistaril 25 mg PO PRN during the day shift. Last COW: 4 and CIWA: 4 (1600). At this time pt has just returned from the scheduled meeting in the recreational room. Pt stated " I'm okay, but can we do meds around 8:30p?" Pt denies any pain/discomfort at this time. Pt was encouraged to notify staff of any changes in condition or of any concerns. Pt verbalized an understanding. All safety measures in place; side rails up x 2, bed locked and in low position, and call light within reach. Will continue to monitor.
[2016-09-28 20:00] VITALS: BP 117/65
[2016-09-28] MEDS: CLONIDINE HCL 0.1 MG TABLET PO PRN (20:36)
--- NOTE | 2016-09-28 20:37 | NUR ---
RN note PRN Clonidine Pt c/o anxiety and noted to be restless. Administered Clonidine 0.1 mg PO. BP-128/77. No SOB noted. Will reassess.
--- NOTE | 2016-09-28 21:40 | NUR ---
RN note reassess Pt verbalized "feeling a little better". Clonidine effective.
--- NOTE | 2016-09-29 | NUR ---
LUH, GENE, AND VITALS REFUSED Pt refused to be assessed and have vitals taken at this time. Pt was encouraged x 3 with risks and benefits explained, but the pt still declined. Will continue to monitor. Addendum: 09/29/16 at 0416 by TY ANDRADE LVN Amended: Links added.
--- NOTE | 2016-09-29 04:00 | NUR ---
LUH, GENE, AND VITALS REFUSED Pt refused to be assessed and have vitals taken at this time. Pt was encouraged x 3 with risks and benefits explained, but the pt still declined. Will continue to monitor. Addendum: 09/29/16 at 0421 by TY ANDRADE LVN Amended: Links added.
--- NOTE | 2016-09-29 07:19 | NUR ---
END OF SHIFT NOTE Pt is a 26 y/o male admitted for Heroin and Xanax dependence and use. Pt has an allergy to cats and reported a PMH of anxiety, depression, opioid use disorder, insomnia, meniscus repair and ankle surgery. Pt continues on a 5 day Ativan taper and a 5 day Subutex taper and is tolerating medication well with no s/e or a/r reported. Pt received Clonidine 0.1 mg PO PRN during the shift. Last COW: 6 and CIWA: 7 (1999). Pt slept for a total of 8 hours. All safety measures in place; side rails up x 2, bed locked and in low position, and call light within reach. Endorsed to the oncoming nurse.
--- NOTE | 2016-09-29 07:30 | NUR ---
START OF SHIFT Rcvd client in room, he is A/O x 4, he presents with anxious mood, flat affect, he reports chills, stomach cramps, decreased appetite, he denies N/V/D. He denies any SI/HI. Encouraged increased fluid intake and activity as tolerated. Encouraged group therapy attendance. Per night warehouse selector nurse, client admitted for withdrawal from opioids and benzodiazepine. He is last day of modified 4 day Subutex/ 5 day Ativan, tolerating well. History of withdrawal induced seizures. Last COWS 6/CIWA 7 @ 0400. PRN Clonidine and Vistaril for anxiety, noted effective. He slept 8 hrs. He is full code, regular diet, Allergies to cat dander, grass pollen. Client is on seizure precautions. Side rails X 2 up/padded, call light within reach, bed locked in lowest positions. Will continue with plan of care
[2016-09-29 08:00] VITALS: BP 108/70
[2016-09-29] MEDS: MULTIVITAMINS,THERAPEUTIC TABLET PO SCH (08:35)
[2016-09-29] MEDS: GABAPENTIN 300 MG CAPSULE PO SCH ×3 (08:35→20:26)
[2016-09-29] MEDS: ESCITALOPRAM OXALATE 10 MG TABLET PO SCH (08:35)
[2016-09-29] MEDS: BUPRENORPHINE HCL 2 MG TAB.SUBL SL SCH ×2 (08:36→08:41)
--- NOTE | 2016-09-29 08:37 | NUR ---
Client refused Subutex 2mg, stating "I want to see if I can do it without the subutex" Educate on the importance of taper medication, but he still refused it. Charge nurse made aware.
[2016-09-29] MEDS ORDERED: LORAZEPAM 1 MG TABLET PO SCH (09:00)
[2016-09-29] MEDS: HYDROXYZINE PAMOATE 25 MG CAPSULE PO PRN ×2 (10:50→20:26)
[2016-09-29] MEDS: CLONIDINE HCL 0.1 MG TABLET PO PRN ×2 (10:50→20:28)
--- NOTE | 2016-09-29 10:50 | NUR ---
PRN Clonidine, Vistaril Client appears anxious, MB P 111 Vistaril 25mg Po administered. He reports chills, irritability, sweats Clonidine 0.1mg PO administered. Risk/benefits discuss, he verbalized understanding. Call light within reach.
--- NOTE | 2016-09-29 11:50 | NUR ---
Reassessment PRN Clonidine, Vistaril Client is sitting in bed, calmly watching TV, P 86, Vistaril 25mg effective. He appears calm, dry skin, Clonidine 0.1mg effective. Call light within reach.
[2016-09-29 12:00] VITALS: BP 106/65
[2016-09-29] MEDS ORDERED: CYANOCOBALAMIN 1000 MCG/ML VIAL IM ONE (12:00)
[2016-09-29 14:48] LABS: *AMPHETAMINE, URINE NEGATIVE (NEGATIVE); *BARBITURATE, URINE NEGATIVE (NEGATIVE); *CANNABINOID, URINE POSITIVE (NEGATIVE); *COCCAINE, URINE NEGATIVE (NEGATIVE); *OPIATE, URINE POSITIVE (NEGATIVE); *PHENCYCLIDINE SCREEN,URINE NEGATIVE (NEGATIVE)
[2016-09-29 16:55] VITALS: BP 124/77
[2016-09-29] MEDS ORDERED: DICY20TA28 PO (18:16)
[2016-09-29] MEDS ORDERED: Ibuprofen PO (18:16)
[2016-09-29] MEDS ORDERED: TRAZ-144 PO (18:16)
[2016-09-29] MEDS ORDERED: Gabapentin PO (18:16)
[2016-09-29] MEDS ORDERED: ESCI10TA PO (18:16)
[2016-09-29] MEDS ORDERED: HYDR-3895 PO (18:16)
--- NOTE | 2016-09-29 19:04 | NUR ---
END OF SHIFT Endorsed client to incoming nurse, he is in room, he is A/O x 4, noted depressed mood, flat affect, he denies any SI/HI. Adequate intake 2542mL and output void x 2, stool x 1. Client was compliant with 1/3 group therapy. Admitted for withdrawal from opioids and benzodiazepine. He completed modified 4 day Subutex, 5 day Ativan, tolerated well. History of withdrawal induced seizures. Last COWS 4/CIWA 3 @ 1600. PRN Clonidine chills, irritability and Vistaril for anxiety, noted effective. He is full code, regular diet, Allergies to cat dander, grass pollen. Client is on seizure precautions. Side rails X 2 up/padded, call light within reach, bed locked in lowest positions.
[2016-09-29 20:00] VITALS: BP 120/71
--- NOTE | 2016-09-29 20:00 | NUR ---
START OF SHIFT NOTE Pt is a 26 y/o male admitted for Heroin and Xanax dependence and use. Pt has an allergy to cats and reported a PMH of anxiety, depression, opioid use disorder, insomnia, meniscus repair and ankle surgery. Per day shift nurse pt completed taper and is scheduled for discharge tomorrow. Pt received Vistaril 25 mg PO PRN and Clonidine 0.1 mg PO PRN during the day shift. Last COW: 4 and CIWA: 3 (1600). At this time pt is laying down in his room. Pt stated " I'm doing alright. Can I get some Vistaril and Clonidine with my meds? I'm feeling anxious and uneasy." Pt denies any pain at this time. Pt was encouraged to notify staff of any changes in condition or of any concerns. Pt verbalized an understanding. All safety measures in place; side rails up x 2, bed locked and in low position, and call light within reach. Will continue to monitor.
--- NOTE | 2016-09-29 20:28 | NUR ---
CLONIDINE AND VISTARIL PRN ADMINISTRATION Pt requested to have Vistaril and Clonidine with his bedtime medications because he was feeling "anxious and uneasy". Vistaril 25 mg PO PRN and Clonidine 0.1 mg PO PRN was given. Pt was encouraged to notify staff of any changes in condition or of any concerns. Pt verbalized an understanding. All safety measures in place. Will monitor for effectiveness.
--- NOTE | 2016-09-29 21:28 | NUR ---
CLONIDINE AND VISTARIL PRN REASSESSMENT Pt stated " I feel better, now I can try to get some sleep." PRNS effective. All safety measures in place. Will continue to monitor.
--- NOTE | 2016-09-30 | NUR ---
LUH, SRINIVASANWA, AND VITALS REFUSED Pt refused to be assessed and have vitals taken at this time. Pt was encouraged x 3 with risks and benefits explained but the pt still refused. All safety measures in place. Will continue to monitor. Addendum: 09/30/16 at 0206 by TY ANDRADE LVN Amended: Links added.
--- NOTE | 2016-09-30 04:00 | NUR ---
LUH, GENE, AND VITALS REFUSED Pt refused to be assessed and have vitals taken at this time. Pt was encouraged x 3 with risks and benefits explained, but the pt still declined. Will continue to monitor. Addendum: 09/30/16 at 0648 by TY ANDRADE LVN Amended: Links added.
--- NOTE | 2016-09-30 07:22 | NUR ---
END OF SHIFT NOTE Pt is a 26 y/o male admitted for Heroin and Xanax dependence and use. Pt has an allergy to cats and reported a PMH of anxiety, depression, opioid use disorder, insomnia, meniscus repair and ankle surgery. Pt completed taper and is scheduled for discharge today. Pt received Clonidine 0.1 mg PO PRN and Vistaril 25 mg PO PRN during the shift. Last COW: 2 and CIWA: 2 (1999). Pt slept for a total of 10 hours. All safety measures in place; side rails up x 2, bed locked and in low position, and call light within reach. Endorsed to the oncoming nurse.
--- NOTE | 2016-09-30 07:40 | NUR ---
START OF SHIFT NOTE: Report received from nightman nurse. Pt is a 26 y/o male admitted 09-24-16 for Heroin and Xanax dependence. To be discharged this AM. Pt is alert and oriented X4. Color good, skin warm and dry. Respirations even and unlabored. safety precautions observed. call light within reach.
[2016-09-30] MEDS: GABAPENTIN 300 MG CAPSULE PO SCH (08:00)
[2016-09-30] MEDS: ESCITALOPRAM OXALATE 10 MG TABLET PO SCH (08:00)
[2016-09-30] MEDS: MULTIVITAMINS,THERAPEUTIC TABLET PO SCH (08:01)
[2016-09-30 08:15] VITALS: BP 101/58
--- NOTE | 2016-09-30 08:31 | NUR ---
VSS Discharge papers signed. No home meds
--- NOTE | 2016-09-30 09:02 | NUR ---
Pt discharged in stable condition with all valuables and belongings. No home meds. Pt denies SI/HI. To home via private car.
== END 2016-09-30 09:02 | disposition home or self-care (01) | DRG 895 ==
LOC: SRC 19:06
PROVIDERS: ADMIT Internal Medicine; ATTEND Internal Medicine
PROC: HZ2ZZZZ Detoxification Services for Substance Abuse Treatment (ICD-10-PCS; principal; 2016-09-24)
PROC: HZ31ZZZ Individual Counseling for Substance Abuse Treatment, Behavioral (ICD-10-PCS; 2016-09-25)
PROC: HZ41ZZZ Group Counseling for Substance Abuse Treatment, Behavioral (ICD-10-PCS; 2016-09-26)
DX: F11.23 Opioid dependence with withdrawal (principal); E87.3 Alkalosis; F17.210 Nicotine dependence, cigarettes, uncomplicated; G47.00 Insomnia, unspecified; F41.9 Anxiety disorder, unspecified; Z91.5 Personal history of self-harm; F13.230 Sedative, hypnotic or anxiolytic dependence with withdrawal, uncomplicated; E86.0 Dehydration; F12.90 Cannabis use, unspecified, uncomplicated; F32.9 Major depressive disorder, single episode, unspecified; Z86.69 Personal history of other diseases of the nervous system and sense organs; E07.81 Sick-euthyroid syndrome
CPT/HCPCS: 36415; 70030-TC; 80307; 80346; 80349; 80361; 83690; 83735; 84443; 85025; 86580; 86592; 86705; 86803; 87340; 87806; 93005; G6040-TC; J3420; Q0162; Q0163

== ENCOUNTER 2016-10-30 15:11 | Inpatient (IN) | payer BC, OTHER ==
[~2016-10-30] VITALS: Ht 185.4 cm; Wt 70.8 kg
[~2016-10-30 15:11] MED LIST changes: -Baclofen PO; -CLON0.1T14 PO; +ESCI10TA PO; -METH-33 PO
[2016-10-30] MEDS ORDERED: LORAZEPAM 1 MG TABLET PO PRN ×2 (20:15)
[2016-10-30] MEDS ORDERED: CLONIDINE HCL 0.1 MG TABLET PO PRN (20:15)
[2016-10-30] MEDS ORDERED: BUPRENORPHINE HCL 2 MG TAB.SUBL SL PRN (20:15)
[2016-10-30] MEDS ORDERED: MAG HYDROX/AL HYDROX/SIMETH 30 ML LIQUID UDC PO PRN (20:15)
[2016-10-30] MEDS ORDERED: LOPERAMIDE HCL 2 MG CAPSULE PO PRN ×2 (20:15)
[2016-10-30] MEDS ORDERED: ONDANSETRON 4 MG/2 ML VIAL IM PRN (20:15)
[2016-10-30] MEDS ORDERED: MIRALAX 17 GM POWD.PACK PO PRN (20:15)
[2016-10-30] MEDS ORDERED: MAGNESIUM HYDROXIDE 30 ML LIQUID UDC PO PRN (20:15)
[2016-10-30] MEDS ORDERED: HYDROXYZINE PAMOATE 25 MG CAPSULE PO PRN (20:15)
[2016-10-30] MEDS ORDERED: ACETAMINOPHEN 325 MG TABLET PO PRN (20:15)
[2016-10-30] MEDS ORDERED: DICYCLOMINE HCL 20 MG TABLET PO PRN (20:15)
[2016-10-30] MEDS ORDERED: LORAZEPAM 2 MG/1 ML VIAL IM PRN (20:15)
[2016-10-30] MEDS ORDERED: diphenhydrAMINE 50 MG CAPSULE PO PRN (20:15)
[2016-10-30] MEDS ORDERED: IV D5 1/2 NS 1000 ML 1,000 ML IV PRN (20:45)
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
[2016-10-30 21:52] LABS: BASOPHILS # (AUTO) 0.1 K/uL (0.0-8.0); EOSINOPHILS # (AUTO) 0.2 K/uL (0.0-0.7); EOSINOPHILS % (AUTO) 2.5 % (0.0-7.0); HEMATOCRIT 41.3 % (40-50); LYMPHOCYTES # (AUTO) 2.5 K/UL (0.8-4.8); LYMPHOCYTES % (AUTO) 28.1 % (20.5-51.5); MEAN CORPUSCULAR HEMOGLOBIN 28.5 UUG (27.0-31.0); MEAN CORPUSCULAR HGB CONC 34 g/dL (32.0-37.0); MEAN CORPUSCULAR VOLUME 84.6 FL (82.0-92.0); MONOCYTES # (AUTO) 0.5 K/UL (0.1-1.30); MONOCYTES % (AUTO) 5.9 % (0.0-11.0); NEUTROPHILS # (AUTO) 5.7 K/UL (1.8-8.9); NEUTROPHILS % (AUTO) 62.5 % (38.5-71.5); PLATELET COUNT (AUTO) 226 K/UL (150-450); RED BLOOD CELL COUNT(AUTO) 4.89 MIL/UL (4.7-6.1)
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
[2016-10-30 22:06] LABS: ALANINE AMINOTRANSFERASE 19 U/L (16-63); ALKALINE PHOSPHATASE 63 U/L (50-136); ASPARTATE AMINOTRANSFERASE 18 U/L (15-37); BILIRUBIN,TOTAL 0.4 mg/dL (0.2-1.0); CARBON DIOXIDE 34 mmol/L (21-32); CHLORIDE 103 mmol/L (98-107); GLUCOSE 87 mg/dL (74-106); MAGNESIUM 2.2 mg/dL (1.8-2.4); POTASSIUM 4.7 mmol/L (3.5-5.1); TOTAL PROTEIN, SERUM 7.7 g/dL (6.4-8.2); UREA NITROGEN, BLOOD 7 mg/dL (7-18)
[2016-10-30 22:09] LABS: ETHANOL < 3 MG/DL (0-0)
[2016-10-30 23:57] LABS: *AMPHETAMINE, URINE POSITIVE (NEGATIVE); *BARBITURATE, URINE NEGATIVE (NEGATIVE); *CANNABINOID, URINE POSITIVE (NEGATIVE); *COCCAINE, URINE POSITIVE (NEGATIVE); *OPIATE, URINE POSITIVE (NEGATIVE); *PHENCYCLIDINE SCREEN,URINE NEGATIVE (NEGATIVE)
[2016-10-31] VITALS: BP 125/72
--- NOTE | 2016-10-31 | NUR ---
Pt. vomited x1 Pt. vomited x1, states he feels better and refused Zofran. He wants to sleep .All safety measures in the place by hospital policy: Call light within reach; bed locked and in the lowest position; padded rails up x 2. Will continue to monitor and offer help.
--- NOTE | 2016-10-31 06:40 | NUR ---
END OF SHIFT NOTE : Patient is a 26 old male admitted to [facility] on 09/29/16 at 21:10 for Opioid , Benzo Dependency. Patient reports History of Benzodiazepine withdrawal seizures. At the time of admission, the patient was intoxicated. Patient encouraged to increase PO fluid intake as tolerated. Breathing is even and unlabored. Lung Sounds clear bilaterally. Pt. refused VS check at 04:00. Actual COWS=4, CIWA=4 . Patient denies SOB/heart pain. Skin is intact, warm and dry. Pt remains compliant with the treatment plan. No PRNs were given during my shift. V/S remain WNL. RR=16, even and unlabored, lungs clear upon auscultation, abdomen soft and non- distended. Pt denies nausea, vomiting and diarrhea in the morning. SQLJBY=268 ml, voided x 1, slept 6 hours. All safety measures in the place by hospital policy: Call light within reach; bed locked and in the lowest position; padded rails up x 2. Will continue to monitor and offer help.
[2016-10-31 08:00] VITALS: BP 100/60
--- NOTE | 2016-10-31 08:15 | NUR ---
START OF SHIFT: RECEIVED PT A/O X 4. HE PRESENTS WITH IRRITABLE MOOD AND CONGRUENT AFFECT. HE REPORTS ANXIETY, IRRITABILITY AND MILD BODY ACHES. COWS 4 CIWA 3 ATIVAN/SUBUTEX TAPER SCHEDULED. SUBUTEX HELD DUE TO LOW COWS SCORE. ATIVAN ADMINISTERED ORDERED. PT STATES HE SLEPT OK AND HIS APPETITE IS FAIR. ENCOURAGED INCREASED FLUIDS TO ASSIST IN FACILITATING DETOX PROCESS. WILL CONTINUE TO MONITOR AND OFFER SUPPORT.
[2016-10-31] MEDS ORDERED: TUBERCULIN,PURIF.PROT.DERIV. 5 TU/0.1 ML TEST ID ONE (09:00)
[2016-10-31] MEDS: BUPRENORPHINE HCL 2 MG TAB.SUBL SL SCH ×4 (09:00→21:46)
[2016-10-31] MEDS: GABAPENTIN 300 MG CAPSULE PO SCH ×3 (09:30→21:45)
[2016-10-31] MEDS: MULTIVITAMINS,THERAPEUTIC TABLET PO SCH (09:30)
[2016-10-31] MEDS: LORAZEPAM 1 MG TABLET PO SCH ×4 (09:31→21:45)
[2016-10-31 12:00] VITALS: BP 101/62
--- NOTE | 2016-10-31 14:08 | NUR ---
1200 COWS AND CIWA DEFERRED. 1300 MEDS HELD PT IS ASLEEP VS WNL.
--- NOTE | 2016-10-31 14:50 | NUR ---
Client was encouraged to attend daily group therapy sessions. Client statd he was not feeling well but would attend if he felt better.
[2016-10-31 16:00] VITALS: BP 134/65
--- NOTE | 2016-10-31 18:54 | NUR ---
END OF SHIFT: PT C/O ANXIETY AND MILD BODY ACHES THIS AM SUBUTEX HELD UNTIL 1700. 1300 MEDS HELD PT WAS ASLEEP. ATIVAN/ SUBUTEX TAPER IN PROGRESS. LAST COWS 13 CIWA 6. HE STAYED IN BED AND SLEPT ON AND OFF MOST OF SHIFT. PPD PLANTED TO LFA. ENCOURAGED INCREASED FLUID AND REST. PT COMPLIANT. WILL PASS SHIFT REPORT TO ONCOMING NIGHT NURSE.
--- NOTE | 2016-10-31 19:15 | NUR ---
START OF SHIFT NOTE : Patient is a 26 old male admitted to [facility] on 09/29/16 at 21:10 for Opioid , Benzo Dependency. Patient reports History of Benzodiazepine withdrawal seizures. At the time of admission, the patient was intoxicated. Patient encouraged to increase PO fluid intake as tolerated. Breathing is even and unlabored. Lung Sounds clear bilaterally. Patient denies SOB/heart pain. Skin is intact, warm and dry. Pt remains compliant with the treatment plan. RR=16, even and unlabored, lungs clear upon auscultation, abdomen soft and non- distended. Pt denies nausea, vomiting and diarrhea in the morning. All safety measures in the place by hospital policy: Call light within reach; bed locked and in the lowest position; padded rails up x 2. Will continue to monitor and offer help.
[2016-10-31 20:00] VITALS: BP 104/56
--- NOTE | 2016-10-31 20:00 | NUR ---
1999 Patient received lying quietly in -like position of comfort, with eyes closed. Patient easily aroused for nurse assess and vital signs. Upon seeing nurse, patient states, " Oh good, I got you tonight". Patient's color is nguyen-pink and his skin is warm, dry and intact, though patient states that he has been feeling cold today and he is noted to have several blankets wrapped around him. Patient is oriented to person, place, day and her personal situation. Easily reoriented to date and time. Patient's lung sounds are clear bilaterally and active bowel sounds are noted X 4 abdominal Quads, per auscultation. Patient moves all his extremities fully WNL, though body movements are slightly slow and deliberate. Vital signs are: 98.3-102-18 104/56, O2 Sat 96%, COWS 6, CIWA 6. Patient offers no requests or c/o anything at this time. Patient was admitted on 10/30/16 for: heroin, Xanax and Marijuana withdrawal and he has been started on a 5-Day Ativan medication taper and a 5-Day Subutex medication taper for withdrawal symptoms. Patient states that he is tolerating his medications well so far, though he has had an small episode or two of nausea/vomiting on previous shift, he states. Patient states further that he does not have much of an appetite, but he is taking fluids ad ana with no real gastric issues. Patient states that he has gone to [facility] today but he overall is not physically feeling up to attending groups regularly at this time. Bed is locked and in the lowest position, bd rails are up X 2 and call light within patient's easy reach.
[2016-10-31] MEDS: TRAZODONE 100 MG TABLET PO PRN (21:46)
--- NOTE | 2016-10-31 21:46 | NUR ---
PRN MEDICATION: Prn Trazadone 100 mg p.o. given per request for sleep medication.
[2016-10-31] MEDS: METHOCARBAMOL 750 MG TABLET PO PRN (21:47)
--- NOTE | 2016-10-31 21:47 | NUR ---
PRN MEDICATION: Prn Robaxin 750 mg p.o. given per request for c/o " very achey muscle pain", generalized, 8/10 pain scale.
--- NOTE | 2016-10-31 22:47 | NUR ---
REASSESSMENT PRN MEDICATIONS: Patient is resting quietly with eyes closed and respirations even, unlabored at 14.
[2016-10-31] MEDS: IBUPROFEN 600 MG TABLET PO PRN (23:56)
--- NOTE | 2016-10-31 23:56 | NUR ---
PRN MEDICATIONS: Prn Catapres 0.1 mg p.o. given for increasing anxiety and agitation, c/o sweats, CIWA 6, COWS 6. Prn Motrin 600 mg p.o. given for c/o left arm pain, 6-7/10 pain scale.
[2016-11-01] VITALS: BP 100/54
--- NOTE | 2016-11-01 00:56 | NUR ---
REASSESSMENT PRN MEDICATIONS: Patient is calmer than at 2356 and he states that his 'left arm pain is better now, about a 3-4/'pain scale.
--- NOTE | 2016-11-01 04:00 | NUR ---
Patient refused to be awakened for V/S to be done at this time.
--- NOTE | 2016-11-01 06:00 | NUR ---
0600 Patient slept a total of 9 .25 hours and he had 1 void and no stools. Total intake was 500 ml p.o. Prn medications given noted separately per floor protocol. V/SS afebrile, last CIWA 4 and last COWS 4 at 0000. Patient is overall cooperative and verbally appropriate when awake and interacting with nurse, though he is somewhat withdrawn, depressed and flat in mood/affect. Patient is presently sleeping comfortably in stable condition with eyes closed and respirations quiet, even, unlabored at 12.
[2016-11-01 08:00] VITALS: BP 100/62
--- NOTE | 2016-11-01 08:15 | NUR ---
START OF SHIFT: RECEIVED PT A/O X 4.LAYING IN BED. HE REPORTS CHILLS,SWEATS ANXIETY AND BODY ACHES. COWS 8 CIWA 4. HE PRESENTS WITH IRRITABLE MOOD AND CONGRUENT AFFECT. COWS 8 CIWA 4. ATIVAN/SUBUTEX TAPER IN PROGRESS TO MANAGE S/S OF W/D.ENCOURAGED INCREASED FLUIDS. WILL CONTINUE TO MONITOR AND OFFER SUPPORT.
[2016-11-01] MEDS: GABAPENTIN 300 MG CAPSULE PO SCH ×3 (09:20→20:49)
[2016-11-01] MEDS: ESCITALOPRAM OXALATE 10 MG TABLET PO SCH (09:20)
[2016-11-01] MEDS: LORAZEPAM 1 MG TABLET PO SCH ×3 (09:20→20:49)
[2016-11-01] MEDS: MULTIVITAMINS,THERAPEUTIC TABLET PO SCH (09:20)
[2016-11-01] MEDS: BUPRENORPHINE HCL 2 MG TAB.SUBL SL SCH ×3 (09:21→20:50)
[2016-11-01] MEDS ORDERED: BUPRENORPHINE HCL 2 MG TAB.SUBL SL ONE (11:45)
[2016-11-01 12:00] VITALS: BP 104/61
--- NOTE | 2016-11-01 13:10 | NUR ---
PT IS ASLEEP. COWS AND CIWA DEFERRED. RESPIRATIONS EVEN AND UNLABORED. BED LOCKED AND LOW. CALL [place] IN REACH.
[2016-11-01 16:00] VITALS: BP 96/57
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
[2016-11-01 20:00] VITALS: BP 117/70
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
[2016-11-01] MEDS: METHOCARBAMOL 750 MG TABLET PO PRN (20:49)
[2016-11-01] MEDS: ONDANSETRON ODT 4 MG TAB.RAPDIS SL PRN (20:49)
--- NOTE | 2016-11-01 20:49 | NUR ---
PRN ROBAXIN AND ZOFRAN ADMINISTRATION PATIENT C/O BACK PAIN 8/10 AND C/O NAUSEA NO EMESIS. PRN ROBAXIN AND ZOFRAN GIVEN. WILL MONITOR FOR EFFECTIVENESS
--- NOTE | 2016-11-01 21:49 | NUR ---
PRN ROBAXIN/ZOFRAN RE-ASSESSMENT PATIENT STATES ROBAXIN AND ZOFRAN HELPFUL . EMESIS CEASED AND PAIN SUBSIDED. PAIN LEVEL 2/10 , TOLERATED. WILL CONTINUE TO MONITOR
[2016-11-01] MEDS: TRAZODONE 100 MG TABLET PO PRN (21:53)
--- NOTE | 2016-11-01 21:53 | NUR ---
PRN TRAZADONE ADMINISTRATION PATIENT REQUESTS FOR SLEEP AID. PRN TRAZADONE GIVEN. WILL MONITOR FOR EFFECTIVENESS
--- NOTE | 2016-11-01 22:53 | NUR ---
PRN TRAZADONE RE-ASSESSMENT PATIENT IN BED, ASLEEP. RESPIRATION EVEN AND UNLABORED. NO S/S OF DISTRESS. WILL CONTINUE TO MONITOR.
[2016-11-02] VITALS (7 sets, daily range): BP systolic 102–110; BP diastolic 56–68
[2016-11-02] MEDS: IBUPROFEN 600 MG TABLET PO PRN (04:27)
--- NOTE | 2016-11-02 04:27 | NUR ---
PRN MOTRIN RE-ASSESSMENT PATIENT C/O BACK PAIN 11/30. PRN MOTRIN GIVEN. WILL MONITOR FOR EFFECTIVENESS
--- NOTE | 2016-11-02 05:27 | NUR ---
LALON ANGEL RE-ASSESSMENT PATIENT IN BED, ASLEEP. NO S/S OF DISTRESS. NO FACIAL GRIMACING.WILL CONTINUE TO MONITOR.
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
[2016-11-02] MEDS ORDERED: BUPRENORPHINE HCL 2 MG TAB.SUBL SL SCH (09:00)
[2016-11-02] MEDS: ESCITALOPRAM OXALATE 10 MG TABLET PO SCH (09:06)
[2016-11-02] MEDS: GABAPENTIN 300 MG CAPSULE PO SCH (09:06)
[2016-11-02] MEDS: LORAZEPAM 1 MG TABLET PO SCH ×3 (09:06→20:34)
[2016-11-02] MEDS: MULTIVITAMINS,THERAPEUTIC TABLET PO SCH (09:07)
[2016-11-02] MEDS ORDERED: BUPRENORPHINE HCL 2 MG TAB.SUBL SL ONE (10:45)
[2016-11-02] MEDS ORDERED: LORAZEPAM 1 MG TABLET PO ONE (10:45)
--- NOTE | 2016-11-02 11:11 | NUR ---
START OF SHIFT: RECEIVED PT A/O X 4 HE REPORTS SWEATS ANXIETY AND BODY ACHES. COWS 6 CIWA 3. HE PRESENTS WITH DEPRESSED MOOD AND BLUNTED AFFECT. HE DENIES S/I AND H/I. STRONGLY ENCOURAGED A SHOWER AND GOOD HYGIENE.COWS 4 CIWA 2. ATIVAN/SUBUTEX TAPER IN PROGRESS TO MANAGE S/S OF W/D.ENCOURAGED INCREASED FLUIDS. WILL CONTINUE TO MONITOR AND OFFER SUPPORT. Addendum: 11/02/16 at 1153 by JOE MOURA RN START OF SHIFT AT 0820
[2016-11-02] MEDS: DICYCLOMINE HCL 20 MG TABLET PO SCH ×2 (15:34→20:33)
[2016-11-02] MEDS: BACLOFEN 10 MG TABLET PO SCH ×2 (15:34→20:33)
[2016-11-02] MEDS: GABAPENTIN 400 MG CAPSULE PO SCH ×2 (15:35→20:34)
[2016-11-02] MEDS: BUPRENORPHINE HCL 2 MG TAB.SUBL SL SCH ×2 (15:36→20:36)
[2016-11-02] MEDS ORDERED: KETOROLAC TROMETHAMINE 30 MG INJ IM PRN (17:15)
--- NOTE | 2016-11-02 18:58 | NUR ---
END OF SHIFT: PT C/O ANXIETY AND MILD BODY ACHES. HE PRESENTS WITH BLUNTED AFFECT AND DEPRESSED MOOD. PT DISHEVELED. HE DENIES S/I AND H/I. ATIVAN/ SUBUTEX TAPER IN PROGRESS. LAST COWS 2 CIWA 2 PT DID NOT WANT TO SHOWER AND WAS REDIRECTED. PT SHOWERED AFTER STRONG ENCOURAGEMENT. EDUCATED PT ON IMPORTANCE OF GOOD HYGIENE. NO PRNS GIVEN THIS SHIFT. PT ATTENDED ONE ACTIVITY BUT REFUSED TO GO TO GROUPS AND STATED "IM TOO SICK". PT WAS GIVEN A ONE TIME DOSE OF SUBUTEX AND ATIVAN WHICH WAS EFFECTIVE. PT STAYED IN BED SLEEPING ON AND OFF ALL OF SHIFT.ENCOURAGED INCREASED FLUIDS. WILL PASS SHIFT REPORT TO ONCOMING NIGHT NURSE.
--- NOTE | 2016-11-02 20:21 | NUR ---
START OF SHIFT NOTE Pt is a 26 y/o male admitted for Heroin, Xanax, and Marijuana dependence and use. Pt has allergies to cat dander, grass pollen and Seroquel. Per day shift nurse pt was placed on a 5 day Ativan and Subutex taper and is tolerating medication well with no s/e or a/r reported. Pt received Ativan and Subutex PO x1 during the day shift. Last COW: 2 and CIWA: 2 (1600). At this time pt is in his room laying down. Pt stated " I'm starting to have some anxiety, but other than that I'm okay." Pt denies any pain/discomfort. Pt was encouraged to notify staff of any changes in condition or of any further concerns. Pt verbalized an understanding. All safety measures in place. Will continue to monitor.
[2016-11-02] MEDS: HYDROXYZINE PAMOATE 25 MG CAPSULE PO PRN (20:35)
--- NOTE | 2016-11-02 20:37 | NUR ---
VISTARIL PRN ADMINISTRATION Pt approached the nurse's station and stated " I feel really anxious. Can I have Vistaril with my bedtime medication?" Vistaril 50 mg PO PRN was given. Pt was encouraged to notify staff of any changes in condition or of any further concerns. Pt verbalized an understanding. All safety measures in place. Will monitor for effectiveness.
--- NOTE | 2016-11-02 21:37 | NUR ---
VISTARIL PRN REASSESSMENT Pt stated " I feel way more relaxed." PRN effective. Pt was encouraged to notify staff of any changes in condition or of any concerns. Pt verbalized an understanding. All safety measures in place. Will continue to monitor.
--- NOTE | 2016-11-03 | NUR ---
COW, CIWA, AND VITALS REFUSED Pt refused to be assessed and have vitals taken at this time. Pt was encouraged x 3 with risks and benefits explained, but the pt still refused. All safety measures in place. Will continue to monitor. Addendum: 11/03/16 at 0154 by TY ANDRADE LVN Amended: Links added.
--- NOTE | 2016-11-03 04:03 | NUR ---
COW, CIWA, AND VITALS REFUSED Pt refused to be assessed and have vitals taken at this time. Pt was encouraged x 3 with risks and benefits explained, but the pt still refused. All safety measures in place. Will continue to monitor. Addendum: 11/03/16 at 0403 by TY ANDRADE LVN Amended: Links added.
[2016-11-03 04:07] LABS: HEPATITIS B SURFACE AG Negative (Negative)
--- NOTE | 2016-11-03 07:22 | NUR ---
END OF SHIFT NOTE Pt is a 26 y/o male admitted for Heroin, Xanax, and Marijuana dependence and use. Pt has allergies to cat dander, grass pollen and Seroquel. Pt continues on a 5 day Ativan and Subutex taper and is tolerating medication well with no s/e or a/r reported. Pt received Vistaril 50 mg PO PRN during the shift. Last COW: 4 and CIWA: 3 (1999). Pt slept for slept for a total of 7 hours. All safety measures in place. Will endorse to the oncoming nurse.
--- NOTE | 2016-11-03 07:30 | NUR ---
Start of shift note; Received report from night nurse. Patient is AOX4. Patient is a 26 year old male admitted on 10/30/16 for Opiate and benzo dependence. Patient was placed on a 5 day Ativan and 5 day Subutex taper, no adverse reactions noted. Patient noted to be allergic to Seroquel. Patient's last COWS score of 4 and CIWA 3 [id number] per endorsement. Patient slept for 5 hours. Patient is on fall and seizure precaution. Will continue to monitor patient.
[2016-11-03 08:00] VITALS: BP 111/60
[2016-11-03] MEDS: ESCITALOPRAM OXALATE 10 MG TABLET PO SCH (08:33)
[2016-11-03] MEDS: LORAZEPAM 1 MG TABLET PO SCH ×2 (08:33→20:49)
[2016-11-03] MEDS: BUPRENORPHINE HCL 2 MG TAB.SUBL SL SCH ×3 (08:33→20:51)
[2016-11-03] MEDS: BACLOFEN 10 MG TABLET PO SCH ×2 (08:33→14:16)
[2016-11-03] MEDS: MULTIVITAMINS,THERAPEUTIC TABLET PO SCH (08:33)
[2016-11-03] MEDS: DICYCLOMINE HCL 20 MG TABLET PO SCH ×3 (08:33→20:50)
[2016-11-03] MEDS: GABAPENTIN 400 MG CAPSULE PO SCH ×3 (08:34→20:50)
[2016-11-03 12:00] VITALS: BP 100/67
--- NOTE | 2016-11-03 15:34 | NUR ---
Client was encouraged to attend daily group sessions. Client was ambiguous about attending the next group.
[2016-11-03 16:00] VITALS: BP 100/67
[2016-11-03] MEDS: HYDROXYZINE PAMOATE 25 MG CAPSULE PO PRN (17:16)
[2016-11-03] MEDS: ONDANSETRON ODT 4 MG TAB.RAPDIS SL PRN (17:16)
--- NOTE | 2016-11-03 17:20 | NUR ---
PRN medication; Patient is complaining of nausea and anxiety manifested by patient is pacing back and forth in the room. Will continue to monitor patient for effectiveness of medication. Addendum: 11/03/16 at 1818 by KRISTA KRAUSN PRN Zofran 4mg ODT and PRN Vistaril 50mg PO given to patient.
--- NOTE | 2016-11-03 17:30 | NUR ---
IV insertion; Left forearm IV 22 gauge inserted. Started patient on D5% / NS SOLN 1000ml per MD order to prevent dehydration. MD is aware of patient's current condition. Will closely monitor patient. Addendum: 11/03/16 at 1753 by KRISTA KRAUSN IV fluids to run 125ml/hr.
--- NOTE | 2016-11-03 18:20 | NUR ---
Re-assessment; Patient denies nausea at this time and patient appears calm and comfortable. PRN medications were effective.
--- NOTE | 2016-11-03 18:37 | NUR ---
End of shift note; Patient is AOX4. Patient is AOX4. Patient is a 26 year old male admitted on 10/30/16 for Opiate and benzo dependence. Patient was placed on a 5 day Ativan and 5 day Subutex taper, no adverse reactions noted. Patient noted to be allergic to Seroquel. Patient's last COWS score of 4 and CIWA 2 at 1600. IV site remained intact and secured, no s/s of infiltration. Patient remained compliant with treatment plan and medication regime. Medications were effective inr educing withdrawal symptoms. Met all needs.
--- NOTE | 2016-11-03 19:33 | NUR ---
START OF SHIFT NOTE Pt is a 26 y/o male admitted for Heroin, Xanax, and Marijuana dependence and use. Pt has allergies to cat dander, grass pollen and Seroquel. Per day shift nurse pt continues on a 5 day Ativan and Subutex taper and is tolerating medication well with no s/e or a/r reported. Pt received Vistaril 50 mg PO PRN, Zofran 4 mg PO PRN, and fluids via IV was started on the pt during the day shift. Last COW: 4 and CIWA: 2 (1600). At this time pt is on his way to a smoke break. Pt stated " I'm okay. I just wanted some fluids because I was feeling dehydrated earlier. I'm starting to feel better." Pt denies any pain/discomfort. Pt was encouraged to notify staff of any changes in condition or of any further concerns. Pt verbalized an understanding. All safety measures in place. Will continue to monitor.
[2016-11-03 20:00] VITALS: BP 100/67
[2016-11-03] MEDS: BACLOFEN 20 MG TABLET PO SCH (20:49)
[2016-11-03] MEDS ORDERED: BACLOFEN 10 MG TABLET PO SCH (21:00)
--- NOTE | 2016-11-03 22:00 | NUR ---
NURSE COMMUNICATION Per pt's request IV fluids was discontinued. Pt is encouraged to notify staff of any changes in condition or of any concerns. Pt is also encouraged to increase fluids. Pt verbalized an understanding. All safety measures in place. Will continue to monitor.
[2016-11-04] VITALS: BP 106/51
--- NOTE | 2016-11-04 04:00 | NUR ---
COW, CIWA, AND VITALS REFUSED Pt refused to be assessed and have vitals taken at this time. Pt was encouraged x 3 with risks and benefits explained, but the pt still declined. All safety measures in place. Will continue to monitor. Addendum: 11/04/16 at 0606 by TY ANDRADE LVN Amended: Links added.
--- NOTE | 2016-11-04 07:01 | NUR ---
END OF SHIFT NOTE Pt is a 26 y/o male admitted for Heroin, Xanax, and Marijuana dependence and use. Pt has allergies to cat dander, grass pollen and Seroquel. Pt continues on a 5 day Ativan and Subutex taper and is tolerating medication well with no s/e or a/r reported. Pt's IV was discontinued at 2200 per pt's request. Pt didn't receive any PRNS during the shift. Last COW: 0 and CIWA: 0 (0000). Pt slept for slept for a total of 7 hours. All safety measures in place. Will endorse to the oncoming nurse.
--- NOTE | 2016-11-04 07:40 | NUR ---
Start of shift note; Received report from night nurse. Patient is AOX4. Patient is a 26 year old male admitted on 10/30/16 for Opiate and benzo dependence. Patient was placed on a 5 day Ativan and 5 day Subutex taper, no adverse reactions noted. Patient noted to be allergic to Seroquel. Patient's last COWS score of 0 and CIWA 0 at 0400 per endorsement. Patient slept for 7 hours. Patient is on fall and seizure precaution. Will continue to monitor patient.
[2016-11-04 08:00] VITALS: BP 99/67
[2016-11-04] MEDS: ESCITALOPRAM OXALATE 10 MG TABLET PO SCH (08:17)
[2016-11-04] MEDS: GABAPENTIN 400 MG CAPSULE PO SCH ×3 (08:17→20:43)
[2016-11-04] MEDS: MULTIVITAMINS,THERAPEUTIC TABLET PO SCH (08:17)
[2016-11-04] MEDS: BACLOFEN 20 MG TABLET PO SCH ×3 (08:17→20:36)
[2016-11-04] MEDS: DICYCLOMINE HCL 20 MG TABLET PO SCH ×3 (08:17→20:36)
[2016-11-04] MEDS ORDERED: LORAZEPAM 1 MG TABLET PO SCH (09:00)
[2016-11-04] MEDS ORDERED: BUPRENORPHINE HCL 2 MG TAB.SUBL SL SCH (09:00)
[2016-11-04] MEDS: HYDROXYZINE PAMOATE 25 MG CAPSULE PO PRN ×2 (11:54→20:35)
--- NOTE | 2016-11-04 11:56 | NUR ---
PRN medication; Patient appears anxious, patient pacing pacing and forth in the room. PRN Vistaril 50mg PO given for anxiety. Will closely monitor patient for effectiveness of medication.
[2016-11-04 12:00] VITALS: BP 99/64
--- NOTE | 2016-11-04 12:56 | NUR ---
Re-assessment; Patient is calm and comfortable at this time. Patient does not appear anxious or agitated. PRN medication is effective.
[2016-11-04] MEDS ORDERED: BACL20TA PO (13:18)
[2016-11-04] MEDS ORDERED: ONDA4TAB11 SL (13:18)
[2016-11-04] MEDS ORDERED: IBUP-1955 PO (13:18)
[2016-11-04] MEDS ORDERED: HYDR-3895 PO (13:18)
[2016-11-04] MEDS ORDERED: DICY20TA28 PO (13:18)
[2016-11-04] MEDS ORDERED: GABA-536 PO (13:18)
[2016-11-04 16:00] VITALS: BP 103/63
[2016-11-04 17:43] LABS: *AMPHETAMINE, URINE NEGATIVE (NEGATIVE); *BARBITURATE, URINE NEGATIVE (NEGATIVE); *CANNABINOID, URINE POSITIVE (NEGATIVE); *COCCAINE, URINE NEGATIVE (NEGATIVE); *OPIATE, URINE POSITIVE (NEGATIVE); *PHENCYCLIDINE SCREEN,URINE NEGATIVE (NEGATIVE)
--- NOTE | 2016-11-04 18:40 | NUR ---
End of shift note; Patient is AOX4. Patient remained compliant with treatment plan. Medication were effective in reducing withdrawal symptoms. Patient's last COWS score is 1 and CIWA score is 1 at 1600. Patient is medically cleared for discharge tomorrow. All safety measures secured. Met all needs.
[2016-11-04 20:00] VITALS: BP 112/62
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
--- NOTE | 2016-11-04 20:35 | NUR ---
VISTARIL PRN ADMINISTRATION Pt stated "Can I have Vistaril ?" Vistaril 50 mg PO PRN was given. Pt was encouraged to notify staff of any changes in condition or of any further concerns. Pt verbalized an understanding. All safety measures in place. Will monitor for effectiveness.
--- NOTE | 2016-11-04 21:35 | NUR ---
VISTARIL PRN REASSESSMENT Pt stated " I feel better." PRN effective. All safety measures in place. Will continue to monitor.
--- NOTE | 2016-11-05 | NUR ---
COW, CIWA, AND VITALS REFUSED Pt refused to be assessed and have vitals taken at this time. Pt was encouraged x 3 with risks and benefits explained, but the pt still refused. All safety measures in place. Will continue to monitor. Addendum: 11/05/16 at 0619 by TY ANDRADE LVN Amended: Links added.
[2016-11-05] MEDS ORDERED: diphenhydrAMINE 50 MG CAPSULE PO ONE (00:15)
[2016-11-05] MEDS: METHOCARBAMOL 750 MG TABLET PO PRN (00:23)
--- NOTE | 2016-11-05 00:27 | NUR ---
ROBAXIN AND BENADRYL PRN ADMINISTRATION Pt stated " Can I have something to help relax my muscles and Benadryl? I don't want the Trazodone." Benadryl 50 mg PO PRN and Robaxin 750 mg PO PRN was given.Pt was encouraged to notify staff of any changes in condition or of any further concerns. Pt verbalized an understanding. All safety measures in place. Will monitor for effectiveness.
[2016-11-05] MEDS ORDERED: diphenhydrAMINE 50 MG CAPSULE ONE (00:28)
--- NOTE | 2016-11-05 01:27 | NUR ---
ROBAXIN AND BENADRYL PRN REASSESSMENT Pt is asleep at this time with no signs of discomfort/distress noted. PRNS effective. All safety measures place. Will continue to monitor.
--- NOTE | 2016-11-05 04:00 | NUR ---
COW, CIWA, AND VITALS REFUSED Pt refused to be assessed and have vitals taken at this time. Pt was encouraged x 3 with risks and benefits explained, but the pt still refused. All safety measures in place. Will continue to monitor. Addendum: 11/05/16 at 0621 by TY ANDRADE LVN Amended: Links added.
--- NOTE | 2016-11-05 07:11 | NUR ---
END OF SHIFT NOTE Pt is a 26 y/o male admitted for Heroin, Xanax, and Marijuana dependence and use. Pt has allergies to cat dander, grass pollen and Seroquel. Pt completed his taper and is scheduled for discharge today. Pt received Benadryl 50 mg PO PRN, Robaxin 750 mg PO PRN, and Vistaril 50 mg PO PRN during the shift. Last COW: 1 and CIWA: 1 (1999). Pt slept for slept for a total of 6 hours. All safety measures in place. Will endorse to the oncoming nurse.
[2016-11-05 08:00] VITALS: BP 93/47
--- NOTE | 2016-11-05 08:00 | NUR ---
START OF SHIFT NOTE Patient is alert and orientated X4. Patient is laying in bed, slowly waking up. Respirations are even and unlabored. Vital signs stable this morning. Last CIWA 2 COWS 3 at 0800. Patient slept 6 hours last night according to night nurse. patient has finished a 5 day ativan 5 day subutex taper. Plan for patient to discharge this morning. All safety measures in place. Will continue to monitor patient.
[2016-11-05] MEDS: DICYCLOMINE HCL 20 MG TABLET PO SCH (08:50)
[2016-11-05] MEDS: BACLOFEN 20 MG TABLET PO SCH (08:51)
[2016-11-05] MEDS: ESCITALOPRAM OXALATE 10 MG TABLET PO SCH (08:51)
[2016-11-05] MEDS: MULTIVITAMINS,THERAPEUTIC TABLET PO SCH (08:51)
[2016-11-05] MEDS: GABAPENTIN 400 MG CAPSULE PO SCH (08:51)
--- NOTE | 2016-11-05 11:08 | NUR ---
DISCHARGE NOTE Patient is in stable condition. Vital signs WNL. Patient is alert and orientated X 4. Skin intact. Patient denies any suicidal or homicidal ideations. All discharge paperwork paperwork completed dated and signed. Patient educated about discharge instructions, what to do after discharge, when to contact MD as well as the S/S reportable to MD. Patient verbalized understanding. Patients last CIWA 2 COWS 3. Patient was discharge from [facility] on 11/05/16 at 1108. Patient left the building with all of his belongings and his prescriptions. Patient did not bring any medications with him to the unit. MD has been notified and contacted of patient's discharge.
== END 2016-11-05 11:08 | DRG 895 ==
LOC: SRC 19:50
PROVIDERS: ADMIT Internal Medicine; ATTEND Internal Medicine
PROC: HZ2ZZZZ Detoxification Services for Substance Abuse Treatment (ICD-10-PCS; principal; 2016-10-30)
PROC: HZ41ZZZ Group Counseling for Substance Abuse Treatment, Behavioral (ICD-10-PCS; 2016-11-01)
DX: F11.23 Opioid dependence with withdrawal (principal); E87.3 Alkalosis; E86.0 Dehydration; F17.210 Nicotine dependence, cigarettes, uncomplicated; F41.9 Anxiety disorder, unspecified; G47.00 Insomnia, unspecified; F15.10 Other stimulant abuse, uncomplicated; F14.10 Cocaine abuse, uncomplicated; Z91.89 Other specified personal risk factors, not elsewhere classified; F12.90 Cannabis use, unspecified, uncomplicated; F13.230 Sedative, hypnotic or anxiolytic dependence with withdrawal, uncomplicated
CPT/HCPCS: 36415; 70030-TC; 80307; 80324; 80346; 80349; 80353; 80361; 83735; 85025; 86592; 86705; 86803; 87340; 87806; G0480; Q0162; Q0163

== ENCOUNTER 2017-06-26 12:57 | Inpatient (IN) | payer OTHER ==
[~2017-06-26] VITALS: Ht 185.4 cm; Wt 65.8 kg
[~2017-06-26 12:57] MED LIST changes: +BACL20TA PO; +GABA-536 PO; -Gabapentin PO; +IBUP-1955 PO; -Ibuprofen PO; +ONDA4TAB11 SL
--- NOTE | 2017-06-27 19:50 | NUR ---
INTAKE ASSESSMENT PT IS 27 Y/O MALE ,A/A/O X 4.SPEECH IS CLEAR AND COHERENT,AMBULATES WITH A STEADY GAIT;V/S ARE STABLE.THIS IS PT'S 6TH ADMISSION TO [facility].COWS=6,CIWA=4.PT DID NOT BRING ANY HOME MEDICATIONS,STATES HE ONLY TAKES TRAZODONE OCCASIONALLY FOR INSOMNIA.PT ADVISED OF Q 4 HR V/S,COWS,CIWA ASSESSMENTS.PT VERBALIZES UNDERSTANDING.PT IS IN STABLE CONDITION TO PROCEED TO [facility].
[2017-06-27 20:00] VITALS: BP 127/76
[2017-06-27] MEDS ORDERED: DIAZEPAM 5 MG TABLET PO PRN (20:00)
[2017-06-27] MEDS ORDERED: BUPRENORPHINE HCL 2 MG TAB.SUBL SL PRN (20:00)
[2017-06-27] MEDS ORDERED: MAG HYDROX/AL HYDROX/SIMETH 30 ML LIQUID UDC PO PRN (20:00)
[2017-06-27] MEDS ORDERED: ONDANSETRON ODT 4 MG TAB.RAPDIS SL PRN (20:00)
[2017-06-27] MEDS ORDERED: IBUPROFEN 400 MG TABLET PO PRN (20:00)
[2017-06-27] MEDS ORDERED: LORAZEPAM 2 MG/1 ML VIAL IM PRN (20:00)
[2017-06-27] MEDS ORDERED: ONDANSETRON HCL 4 MG TABLET PO PRN (20:00)
[2017-06-27] MEDS ORDERED: DIAZEPAM 10 MG TABLET PO PRN ×2 (20:00)
[2017-06-27] MEDS ORDERED: diphenhydrAMINE 50 MG CAPSULE PO PRN (20:00)
[2017-06-27] MEDS ORDERED: MIRALAX 17 GM POWD.PACK PO PRN (20:00)
[2017-06-27] MEDS ORDERED: MAGNESIUM HYDROXIDE 30 ML LIQUID UDC PO PRN (20:00)
[2017-06-27] MEDS ORDERED: LOPERAMIDE HCL 2 MG CAPSULE PO PRN ×2 (20:00)
[2017-06-27] MEDS ORDERED: CLONIDINE HCL 0.1 MG TABLET PO PRN (20:00)
[2017-06-27] MEDS ORDERED: DICYCLOMINE HCL 20 MG TABLET PO PRN (20:00)
[2017-06-27] MEDS ORDERED: ACETAMINOPHEN 325 MG TABLET PO PRN (20:00)
[2017-06-27 20:22] LABS: *AMPHETAMINE, URINE NEGATIVE (NEGATIVE); *BARBITURATE, URINE NEGATIVE (NEGATIVE); *CANNABINOID, URINE POSITIVE (NEGATIVE); *COCCAINE, URINE POSITIVE (NEGATIVE); *OPIATE, URINE POSITIVE (NEGATIVE); *PHENCYCLIDINE SCREEN,URINE NEGATIVE (NEGATIVE)
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
[2017-06-27 22:56] LABS: ETHANOL < 3 MG/DL (0-0)
[2017-06-27 22:59] LABS: BASOPHILS % (AUTO) 0.6 % (0.0-2.0); EOSINOPHILS # (AUTO) 0.4 K/uL (0.0-0.7); HEMATOCRIT 40.3 % (36.7-47.1); HEMOGLOBIN 13.8 g/dL (12.5-16.3); LYMPHOCYTES # (AUTO) 2.3 K/uL (20.0-40.0); LYMPHOCYTES % (AUTO) 32.6 % (20.5-51.5); MEAN CORPUSCULAR HEMOGLOBIN 28.8 uug (23.8-33.4); MEAN CORPUSCULAR HGB CONC 34 g/dL (32.5-36.3); MEAN CORPUSCULAR VOLUME 84.3 fL (73.0-96.2); MONOCYTES # (AUTO) 0.4 K/uL (2.0-10.0); MONOCYTES % (AUTO) 5.6 % (0.0-11.0); NEUTROPHILS # (AUTO) 3.9 K/uL (1.8-8.9); NEUTROPHILS % (AUTO) 55.2 % (38.5-71.5); PLATELET COUNT (AUTO) 227 K/uL (152-348); RED BLOOD CELL COUNT(AUTO) 4.78 MIL/uL (4.06-5.63)
[2017-06-27 23:01] LABS: ALANINE AMINOTRANSFERASE 41 U/L (16-63); ALKALINE PHOSPHATASE 49 U/L (50-136); AMYLASE 60 U/L (25-115); ASPARTATE AMINOTRANSFERASE 34 U/L (15-37); BILIRUBIN,TOTAL 0.2 mg/dL (0.2-1.0); CARBON DIOXIDE 31 mmol/L (21-32); CHLORIDE 105 mmol/L (98-107); GLUCOSE 112 mg/dL (74-106); LIPASE 91 U/L (73-393); MAGNESIUM 2.1 mg/dL (1.8-2.4); POTASSIUM 4.4 mmol/L (3.5-5.1); TOTAL PROTEIN, SERUM 5.9 g/dL (6.4-8.2); UREA NITROGEN, BLOOD 8 mg/dL (7-18)
[2017-06-27 23:07] LABS: THYROID STIMULATING HORMONE 0.323 mIU/mL (0.358-3.740)
[2017-06-28] VITALS: BP 128/72
--- NOTE | 2017-06-28 04:00 | NUR ---
REFUSED V/S; COWS/CIWA DEFERRED PT IS IN DEEP SLEEP,BREATHING IS EVEN AND NON LABORED.HE REFUSED V/S.COWS/CIWA DEFERRED DUE TO BEING ASLEEP.
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
--- NOTE | 2017-06-28 07:45 | NUR ---
Start of shift note; Received report from night nurse. Patient is a 27 year old male admitted on 06/27/17 to detoxify from Opiate/ Benzodiazepine/ Cocaine. Patient is on full code status, on regular diet. Patient reported history of anxiety, depression, insomnia, scoliosis, Seizure withdrawals last episode in 2013. Patient to be evaluated by MD today for taper orders. All safety measures secured. Will continue to monitor patient.
[2017-06-28 08:00] VITALS: BP 94/68
[2017-06-28] MEDS: FOLIC ACID 1 MG TABLET PO SCH (08:48)
[2017-06-28] MEDS: MULTIVITAMINS,THERAPEUTIC TABLET PO SCH (08:48)
[2017-06-28] MEDS ORDERED: TUBERCULIN,PURIF.PROT.DERIV. 5 TU/0.1 ML TEST ID ONE (09:00)
--- NOTE | 2017-06-28 09:57 | NUR ---
PRN medications; Patient is AOX4. Re-assessed COWS and CIWA scores. Patient's current COWS score is 12 and CIWA is 6. PRN Valium 5mg PO given for CIWA of 6 as per MD order. Patient refused to take Subutex at the moment. Awaiting for further taper MD orders. Will continue to monitor patient.
--- NOTE | 2017-06-28 09:58 | NUR ---
Therapist prompted client about group times. Client stated he would try to attend all groups today.
--- NOTE | 2017-06-28 10:57 | NUR ---
Re-assessment; Re-assessed patient, patient's current CIWA score is 6. PRN medication is effective. Will continue to monitor patient.
[2017-06-28] MEDS ORDERED: NICOTINE POLACRILEX 4 MG GUM-PK OF TEN BC PRN (11:15)
[2017-06-28] MEDS ORDERED: LORAZEPAM 1 MG TABLET PO PRN ×2 (11:15)
[2017-06-28] MEDS ORDERED: NICOTINE 14 MG/24HR PATCH TD PRN (11:15)
[2017-06-28 12:00] VITALS: BP 104/77
[2017-06-28] MEDS: BUPRENORPHINE HCL 2 MG TAB.SUBL SL SCH ×3 (12:45→20:22)
[2017-06-28] MEDS: LORAZEPAM 1 MG TABLET PO SCH ×3 (12:45→20:22)
[2017-06-28] MEDS: METHOCARBAMOL 750 MG TABLET PO PRN ×2 (15:24→20:21)
--- NOTE | 2017-06-28 15:26 | NUR ---
PRN medication; Patient reported muscle aches, PRN Robaxin 750mg PO given. Will continue to monitor for effectiveness of medication.
[2017-06-28 16:00] VITALS: BP 92/69
--- NOTE | 2017-06-28 16:26 | NUR ---
Re-assessment; Patient denies muscle aches at this time. PRN medication noted to be effective.
--- NOTE | 2017-06-28 18:49 | NUR ---
End of shift note; Patient is AOX4. Patient was started on a 5 day Ativan and 5 day Subutex tapers, no adverse reactions noted. Patient remained compliant with treatment plan and medication regime. Medications noted to be effective in reducing withdrawal symptoms. All safety measures secured. Met all needs.
--- NOTE | 2017-06-28 19:30 | NUR ---
START OF SHIFT Patient is a 27 year old male admitted on 06/27/17 for Opiate/ Benzodiazepine/ Cocaine dependency. Patient is on full code status, on regular diet, allergic to Seroquel. PMH of history of anxiety, depression, insomnia, scoliosis, Seizure withdrawals last episode in 2013. Pt was evaluated by MD today and has been started on a 5 day Ativan and 5 day Subutex tapers, no adverse reactions noted. Patient is compliant with treatment plan and medication regime. Safety measures in place; bed is locked in lowest position with side rails x2 up for safety, call light within reach. Will continue to monitor.
[2017-06-28 20:00] VITALS: BP 104/61
[2017-06-28] MEDS: GABAPENTIN 300 MG CAPSULE PO SCH (20:21)
[2017-06-28] MEDS: TRAZODONE 50 MG TABLET PO PRN (20:21)
--- NOTE | 2017-06-28 20:25 | NUR ---
PRN ROBAXIN AND TRAZODONE GIVEN FOR MYALGIA AND INSOMNIA RESPECTIVELY.WILL MONITOR.
--- NOTE | 2017-06-28 21:25 | NUR ---
PRN MEDS ARE EFFECTIVE.PT IS SLEEPING;BREATHING IS EVEN AND NON LABORED,WILL CONTINUE TO MONITOR.
[2017-06-28] MEDS: IBUPROFEN 600 MG TABLET PO PRN (23:12)
--- NOTE | 2017-06-28 23:15 | NUR ---
PRN MOTRIN GIVEN FOR GENERALIZED BODYACHE.PAIN LEVEL 9/10. WILL MONITOR.
[2017-06-29] VITALS: BP 115/62
--- NOTE | 2017-06-29 00:15 | NUR ---
PT VERBALIZES A DECREASE IN BODY PAIN,3/10.HE IS RESTING IN BED.WILL CONTINUE TO MONITOR.
[2017-06-29 04:00] VITALS: BP 108/56
--- NOTE | 2017-06-29 06:54 | NUR ---
END OF SHIFT Patient is a 27 year old male admitted on 06/27/17 for Opiate/ Benzodiazepine/ Cocaine dependency. Patient is on full code status, on regular diet, allergic to Seroquel. PMH of history of anxiety, depression, insomnia, scoliosis, Seizure withdrawals last episode in 2013. Pt has been started on a 5 day Ativan and 5 day Subutex tapers, no adverse reactions noted.Today is day 2. Patient is compliant with treatment plan and medication regime. PRN meds Robaxin,motrin and Trazodone were given and were effective.Pt slept 10 hrs,fluid intake was 500 mls,voided x 1.Fluid intake encouraged as tolerated.Last COWS/CIWA=5.Safety measures in place; bed is locked in lowest position with side rails x2 up for safety, call light within reach. Will continue to monitor.
--- NOTE | 2017-06-29 07:17 | NUR ---
Start of shift note; Received report from night nurse. Patient is a 27 year old male admitted on 06/27/17 to detoxify from Opiate/ Benzodiazepine/ Cocaine. Patient is on full code status, on regular diet. Patient reported history of anxiety, depression, insomnia, scoliosis, Seizure withdrawals last episode in 2013. Patient was started Ativan and Subutex tapers, no adverse reactions noted. Patient had 2 episodes of vomiting last night, PRN medications given noted to be effective. All safety measures secured. Will continue to monitor patient. Addendum: 06/29/17 at 0726 by KRISTA ANAYA LVN Clarification; Patient did not have episodes of vomiting, wrong patient documentation.
[2017-06-29 08:00] VITALS: BP 104/68
[2017-06-29] MEDS ORDERED: BUPRENORPHINE HCL 2 MG TAB.SUBL SL SCH (09:00)
[2017-06-29] MEDS: LORAZEPAM 1 MG TABLET PO SCH ×3 (09:21→20:10)
[2017-06-29] MEDS: MULTIVITAMINS,THERAPEUTIC TABLET PO SCH (09:21)
[2017-06-29] MEDS: FOLIC ACID 1 MG TABLET PO SCH (09:21)
[2017-06-29] MEDS: GABAPENTIN 300 MG CAPSULE PO SCH ×2 (09:21→14:22)
--- NOTE | 2017-06-29 09:50 | NUR ---
Therapist prompted client about group times. Client stated he will attend groups if he feels well enough.
[2017-06-29 10:33] LABS: HEPATITIS B SURFACE AG Negative (Negative)
[2017-06-29 12:00] VITALS: BP 104/68
[2017-06-29] MEDS: BACLOFEN 10 MG TABLET PO SCH ×2 (14:22→20:11)
[2017-06-29] MEDS: BUPRENORPHINE HCL 2 MG TAB.SUBL SL SCH ×2 (14:23→20:09)
[2017-06-29 16:00] VITALS: BP 122/65
--- NOTE | 2017-06-29 18:32 | NUR ---
START OF SHIFT NOTE: 27 year old male admitted to [facility] on 06/27/2017 for Benzodiazepines (Xanax, PO), Opioid (heroin smoke), and Cocaine(snort) dependence, and continue 5 Day Ativan and 5 Day Subutex Taper. Patient tolerated well without ASE. Patient reports Allergy to Seroquel. Patient is on Full Code, Regular diet, is on Fall and Seizures Precautions. PMH: Anxiety, Depression, Insomnia, Scoliosis, Foot and Knee Surgery, History of withdrawal-induced seizures x2 in 2013, accidental overdose. Patient is alert and oriented x4. Speech is clear and soft. COWS 11, CIWA 10: patient presented with anxiety, agitation, nervousness, stomach cramps, restlessness, sweating, tremors, body aches, nasal stuffiness, and moist eyes. Patient denies SI/HI. Respirations unlabored and even. Skin is intact, warm and dry to touch. Encouraged fluids intake as tolerated. Encouraged to attend groups activities. All needs met. Safety measures on place. Call light within reach, bed in lowest position and locked, padded rails up bilaterally. Patient endorsed by day shift nurse. Report received.
--- NOTE | 2017-06-29 18:32 | NUR ---
End of shift note; Patient is AOX4. Patient was started on a 5 day Ativan and 5 day Subutex tapers, no adverse reactions noted. Patient remained compliant with treatment plan and medication regime. Medications noted to be effective in reducing withdrawal symptoms. Patient's last COWS is 6 and last CIWA is 3. All safety measures secured. Met all needs.
--- NOTE | 2017-06-29 19:16 | NUR ---
PRN ZOFRAN 4 MG 1 TAB SL ADMINISTRATION. Patient c/o nausea and vomiting x3. PRN Zofran 4 mg 1 tab SL administrated as ordered. Patient tolerated well. All needs met. Safety measures on place. Call light within reach, bed in lowest position and locked, padded rails up bilaterally. Will continue to monitor closely.
[2017-06-29 20:00] VITALS: BP 112/67
[2017-06-29] MEDS: TRAZODONE 50 MG TABLET PO PRN (20:10)
[2017-06-29] MEDS: CLONIDINE HCL 0.1 MG TABLET PO SCH (20:10)
--- NOTE | 2017-06-29 20:10 | NUR ---
PRN TRAZODONE 50 MG 1 TAB PO Patient c/o insomnia. PRN Trazodone 50 mg 1 tab. PO administrated with full glass of water as ordered. Patient tolerated well. All needs met. Safety measures on place. Call light within reach, bed in lowest position and locked, padded rails up bilaterally. Will continue to monitor closely.
--- NOTE | 2017-06-29 20:16 | NUR ---
RE-ASSESSMENT Patient denies nausea and vomiting now. PRN Zofran Odt 4 mg 1 tab. RAPDIS SL was effective. All needs met. Safety measures on place. Call light within reach, bed in lowest position and locked, padded rails up bilaterally rails up bilaterally. Will continue to monitor closely.
[2017-06-29] MEDS ORDERED: GABAPENTIN 300 MG CAPSULE PO SCH (21:00)
--- NOTE | 2017-06-29 21:10 | NUR ---
RE-ASSESSMENT Patient is sleeping. Respirations even and unlabored. RR:16. PRN Trazodone 50 mg 1 tab. PO administrated for insomnia @2009 was effective. All needs met. Safety measures on place. Call light within reach, bed in lowest position and locked, padded rails up x2. Will continue to monitor closely.
[2017-06-30] VITALS: BP 96/54
[2017-06-30 04:29] VITALS: BP 106/58
--- NOTE | 2017-06-30 07:15 | NUR ---
END OF SHIFT NOTE: Patient is a 27 year old male admitted to [facility] on 06/27/2017 for Benzodiazepines (Xanax, PO), Opioid (heroin smoke), and Cocaine(snort) dependence. He is continue 5 Day Ativan and 5 Day Subutex Taper which tolerated well without ASE. Patient reports Allergy to Seroquel, is on Full Code, Regular diet, Fall and Seizures Precautions. Patient reports History of Seizures"from overdose". Last COWS, CIWA decreased from COWS =11, CIWA=10 @1999 to COWS=6, CIWA=5@0400: during my shift patient presented with anxiety, agitation, nervousness, nausea, vomiting, stomach cramps, body aches, restlessness, sweating, tremors, body aches, nasal stuffiness, and moist eyes. Last VS @399: T: 98.1, BP:106/58, HR:68, RA SPO2 98%, RR 16, pain level "0/10". Patient denies SI/HI. Skin is intact, warm and dry to touch. PRN Zofran 4 mg 1 tab SL administrated for nausea and vomiting @1915, and PRN Trazodone 50 mg 1 tab. PO administrated for insomnia @2009 were effective. Patient remains compliant with treatment plan, medications, and diet regime. Patient slept 6 hours, intake 1,300 ml, voided x2. Encouraged fluids intake as tolerated. All needs met. Safety measures on place. Call light within reach, bed in lowest position and locked, padded rails up bilaterally. Patient endorsed to day shift nurse. Report given.
--- NOTE | 2017-06-30 07:47 | NUR ---
Start of shift note; Received report from night nurse. Patient is AOX4. Patient is a 27 year old male admitted on 06/27/17 for Opioid and Benzodiazepine withdrawals. Upon initial assessment patient reported intermittent nausea, muscle aches, anxiety and fatigue. Patient was placed on a 5 day Ativan and 5 day Subutex tapers to help reduce withdrawal symptoms. Educated patient regarding the importance of compliance to treatment and medication regime. Patient was also educated regarding the importance of maintaining adequate fluid and nutritional intake, patient verbalized understanding. All safety measures secured. Will continue to monitor patient.
[2017-06-30 08:00] VITALS: BP 118/76
[2017-06-30] MEDS: GABAPENTIN 300 MG CAPSULE PO SCH ×3 (08:29→20:25)
[2017-06-30] MEDS: MULTIVITAMINS,THERAPEUTIC TABLET PO SCH (08:29)
[2017-06-30] MEDS: BACLOFEN 10 MG TABLET PO SCH ×3 (08:30→20:25)
[2017-06-30] MEDS: CLONIDINE HCL 0.1 MG TABLET PO SCH ×3 (08:30→20:28)
[2017-06-30] MEDS: FOLIC ACID 1 MG TABLET PO SCH (08:30)
[2017-06-30] MEDS: BUPRENORPHINE HCL 2 MG TAB.SUBL SL SCH ×3 (08:30→20:25)
[2017-06-30] MEDS ORDERED: LORAZEPAM 1 MG TABLET PO SCH ×3 (09:00→21:00)
[2017-06-30 12:00] VITALS: BP 90/68
[2017-06-30] MEDS: DICYCLOMINE HCL 20 MG TABLET PO SCH ×2 (14:09→20:25)
[2017-06-30 16:00] VITALS: BP 98/69
--- NOTE | 2017-06-30 18:54 | NUR ---
End of shift note; Patient is AOX4. Patient appears unshaven, undernourished, encouraged increased fluid intake and food intake. Patient is avoidant to eye contact, sad, guarded and withdrawn. Patient encouraged to participate in group activities. Patient was placed on a Subutex and Ativan tapers. Patient's COWS and CIWA scores improved, COWS score from 8 to 7 and CIWA score from 6 to 5 noted at 1600. Medications were effective in reducing withdrawal symptoms. All safety measures secured. Met all needs. Endorsed to night nurse.
[2017-06-30 20:00] VITALS: BP 104/60
--- NOTE | 2017-06-30 20:00 | NUR ---
Start of Shift Notes Received 27 y/o male tyler standing inside his room. Px verbalized his anxiety is pretty high and has body aches of 6/10. Tyler is admitted on 06/27/2017 for Heroin, Xanax and Cocaine dependence. Tyler is Full Code, on regular diet and has allergies on Seroquel. Px reported PMHx of anxiety, depression, insomnia and scoliosis. Tyler is on seizure and fall precaution. Px is on 5 day Ativan and 5 day Subutex taper. Tyler's bed is on lowest position, side rails up 2x, call light within reach.
[2017-06-30] MEDS: IBUPROFEN 600 MG TABLET PO PRN (20:25)
--- NOTE | 2017-06-30 20:25 | NUR ---
PRN Motrin Px reported body aches 10/31. Motrin 600 mg/tab, 1 tab given PO as PRN med. We'll continue to monitor.
--- NOTE | 2017-06-30 21:00 | NUR ---
Clonidine held Px's BP= 104/60 mmHg. Clonidine 0.1 mg/tab, 1 tab PO not given due at 2100 as standing order. We'll continue to monitor.
--- NOTE | 2017-06-30 21:30 | NUR ---
Reassessment of pain Px verbalized that his body aches improved from 6/10 to 3-4/10. We'll continue to monitor.
[2017-07-01] VITALS: BP 91/57
[2017-07-01 04:00] VITALS: BP 94/57
--- NOTE | 2017-07-01 04:00 | NUR ---
COWS and CIWA deferred COWS and CIWA deferred at 0000 and 0400 due to the px is asleep, to assess if the px is awake per doctor's order.
--- NOTE | 2017-07-01 07:20 | NUR ---
End of Shift Notes Clonidine 0.1 mg/tab, 1 tab due at 2100 held due to the BP is low. BP was monitored during the night. Last BP= 94/58 mmHg, [place]= 67 bpm at 0400. Px reported body aches 6/10, Motrin 600 mg/tab, 1 tab given PO as PRN med. It was effective. Oral intake of 1 L, voided 2x, No BM. Slept for 7 hours. We'll continue to monitor. Endorsed to AM shift nurse.
--- NOTE | 2017-07-01 07:45 | NUR ---
START OF SHIFT Rcvd endorse form ongoing nurse, client is in room, he is in a position with chills/cold, fine tremors, moist skin, goosebumps, enlarged pupil, stomach cramps, and fatigue, client is a/o x 3, he presents with anxious mood, flat affect. Client's room has scattered clothes on the floor. Client denies any N/V/D, but states that he has not much of an appetite since admission. Encourage client to increase PO fluid as tolerated to facilitate detox. Encourage client to attend group therapy for skills to maintain sober. Client is admitted for withdrawal from heroin and alprazolam. He is on 5 day Ativan taper/5 day Subutex taper (day 4),. Last CIWA 4/ COWS 3 @ 1999. Client slept 7 hrs. PRN Motrin 600mg PO for body aches, noted effective. Clonidine 0.1mg PO held d/t decreased BP 104/61. Client reports a history of withdrawal-induced seizures. Side rails x 2 up/padded. Call light within reach.
[2017-07-01 08:55] VITALS: BP 97/56
[2017-07-01] MEDS: MULTIVITAMINS,THERAPEUTIC TABLET PO SCH (09:14)
[2017-07-01] MEDS: BACLOFEN 10 MG TABLET PO SCH ×3 (09:14→20:32)
[2017-07-01] MEDS: GABAPENTIN 300 MG CAPSULE PO SCH ×3 (09:14→20:32)
[2017-07-01] MEDS: LORAZEPAM 1 MG TABLET PO SCH ×2 (09:14→20:32)
[2017-07-01] MEDS: DICYCLOMINE HCL 20 MG TABLET PO SCH ×3 (09:14→20:32)
[2017-07-01] MEDS: FOLIC ACID 1 MG TABLET PO SCH (09:14)
[2017-07-01] MEDS: BUPRENORPHINE HCL 2 MG TAB.SUBL SL SCH ×2 (09:15→20:33)
[2017-07-01] MEDS: CLONIDINE HCL 0.1 MG TABLET PO SCH ×2 (09:33→14:38)
--- NOTE | 2017-07-01 10:54 | NUR ---
verbal education provided regarding FLU/PNA vaccine, client verbalized understanding, but still refused the vaccines.
[2017-07-01 12:16] VITALS: BP 97/60
[2017-07-01 16:55] VITALS: BP 105/62
--- NOTE | 2017-07-01 19:14 | NUR ---
END OF SHIFT Endorse client to incoming nurse, client is in room, he is a/o x 3, He continues to present with anxious mood, flat affect, client tends to isolate himself in his room, he does not participate in group therapy. Adequate PO fluid intake 2342mL, void x 3, stool x 1. Client denies any N/V/D. Client is admitted for withdrawal from heroin and alprazolam. He is on 5 day Ativan taper/5 day Subutex taper (day 4). Last CIWA 8/ COWS 9 @ 1600. Clonidine 0.1mg PO held d/t decreased BP 102/52. Client reports a history of withdrawal-induced seizures. Side rails x 2 up/padded. Call light within reach.
--- NOTE | 2017-07-01 19:45 | NUR ---
Start of Shift Notes Received px awake in his room, sitting on bed. Room appears unkempt and odorous. Px appears unshaven and in slumped posture. Garbage noted around the room, and clothes noted on the floor. Px has avoidant eye contact, appears sad, worried and anxious. Px verbalized "I feel depressed and my anxiety is off the roof". Px has generalized body aches 5/10 and H/A of 5/10 as verbalized. Px's bed is on lowest position, side rails up 2x, call light within reach. Advised to call anytime if px needs anything. We'll continue to monitor.
[2017-07-01 20:00] VITALS: BP 101/58
[2017-07-01] MEDS: IBUPROFEN 600 MG TABLET PO PRN (20:32)
[2017-07-01] MEDS: CLONIDINE HCL 0.2 MG TABLET PO SCH (20:35)
[2017-07-01] MEDS: HYDROXYZINE PAMOATE 25 MG CAPSULE PO PRN (20:40)
--- NOTE | 2017-07-01 21:11 | NUR ---
PRN meds At 2039, Vistaril 25 mg/cap, 1 cap given PO as PRN med for high anxiety. At 2031, Motrin 600 mg/tab, 1 tab given PO as PRN for body aches and H/A. Px requested Clonidine for anxiety, at 2110, Clonidine 0.1 mg/tab, 1 tab given PO for BP= 119/62 mmHg. We'll continue to monitor.
--- NOTE | 2017-07-01 21:35 | NUR ---
Reassessment of pain Px verbalized that his body aches improved from 5/10 to 2-3/10 and his H/A is now mild. Pain medication is effective. We'll continue to monitor.
--- NOTE | 2017-07-01 21:40 | NUR ---
reassessment of anxiety Px verbalized "My anxiety improved, but still i feel anxious, 09/30". We'll continue to monitor.
[2017-07-02] VITALS: BP 90/51
--- NOTE | 2017-07-02 | NUR ---
COWS and CIWA deferred COWS and CIWA deferred due to px is asleep, to assess if the px is awake per doctor's order. We'll continue to monitor.
[2017-07-02 04:00] VITALS: BP 92/55
--- NOTE | 2017-07-02 07:12 | NUR ---
End of Shift Notes Px has high COWS and CIWA at the start of the shift, COWS 11 and CIWA 14. They improved to COWS 8 and CIWA 10 before the px went to bed. PRN meds Vistaril 25 mg and Clonidine 0.1 mg were effective to improved pxs anxiety. At 0400, BP= 92/55 mmHg. Motrin 600 mg was effective to decreased pxs body aches and H/A from 5/10 to 2/10. Px had oral intake of 1 L, voided 2x, No BM. Px slept for 8 hours. At 0630, px was asleep on bed Px's bed is on lowest position, side rails up 2x, call light within reach. Well continue to monitor. Px endorsed to AM shift nurse.
--- NOTE | 2017-07-02 07:50 | NUR ---
START OF SHIFT Rcvd endorse form ongoing nurse, client is in room, a/o x 3, client presents with depressed mood, flat affect, difficulty concentrating, and moist skin. He reports feeling tired, body aches, tightness around his head, decreased appetite, and stomach cramps. Encourage client to increase PO fluid as tolerated for rehydration. Encourage client to attend group therapy for skills to maintain sober. Client is admitted for withdrawal from heroin and alprazolam. He is on last of 5 day Ativan taper/5 day Subutex taper. Last CIWA 8/ COWS 10 @ 1999. Client slept 8 hrs. PRN Motrin 600mg PO for VERNON, Clonidine 0.1mg PO for anxiety/agitation, noted effective. 2100 Clonidine 0.1mg PO held d/t decreased BP 100/58. Client reports a history of withdrawal-induced seizures. Side rails x 2 up/padded. Call light within reach.
[2017-07-02 08:19] VITALS: BP 103/55
[2017-07-02] MEDS ORDERED: LORAZEPAM 1 MG TABLET PO SCH (09:00)
[2017-07-02] MEDS: CLONIDINE HCL 0.1 MG TABLET PO SCH ×2 (09:00→15:09)
[2017-07-02] MEDS ORDERED: BUPRENORPHINE HCL 2 MG TAB.SUBL SL SCH (09:00)
[2017-07-02] MEDS: FOLIC ACID 1 MG TABLET PO SCH (09:03)
[2017-07-02] MEDS: MULTIVITAMINS,THERAPEUTIC TABLET PO SCH (09:03)
[2017-07-02] MEDS: BACLOFEN 10 MG TABLET PO SCH ×3 (09:03→20:28)
[2017-07-02] MEDS: GABAPENTIN 300 MG CAPSULE PO SCH ×3 (09:03→20:28)
[2017-07-02] MEDS: DICYCLOMINE HCL 20 MG TABLET PO SCH ×3 (09:03→20:28)
[2017-07-02 12:32] VITALS: BP 106/56
[2017-07-02 16:15] VITALS: BP 106/63
--- NOTE | 2017-07-02 19:30 | NUR ---
Start of Shift Notes Received awake sitting and eating on bed. Room is odorous. Unfinished snacks noticed on table and some unfolded clothes seen on chair and on top of cabinet. Px appears worried. Px verbalized his anxiety is 7/10 and requested pill to help him sleep tonight. Px stated "I want to take my medicines at 2030" Bed is in lowest position, side rails up 2x, and call light within reach. Px is advised to call anytime if he needs anything. We'll continue to monitor.
--- NOTE | 2017-07-02 19:33 | NUR ---
END OF SHIFT Endorse client to incoming nurse, client is in room, he is a/o x 3, client present with depressed mood, flat affect. he stated, "I am ready to go home tomorrow and I am planning on going to NA meetings." Adequate PO fluid intake 1000mL, void x 3, stool x 1. Client denies any N/V/D. Client is admitted for withdrawal from heroin and alprazolam. He completed 5 day Ativan taper/5 day Subutex taper. Last CIWA 5/ 6 @ 1600. 0900 Clonidine 0.1mg PO held d/t decreased BP 103/55. Client reports a history of withdrawal-induced seizures. Side rails x 2 up/padded. Call light within reach.
[2017-07-02 20:00] VITALS: BP 99/58
[2017-07-02] MEDS: HYDROXYZINE PAMOATE 25 MG CAPSULE PO PRN (20:28)
--- NOTE | 2017-07-02 20:28 | NUR ---
PRN Vistaril Vistaril 25 mg/cap, 1 cap given PO as PRN med for anxiety. We'll continue to monitor.
--- NOTE | 2017-07-02 20:35 | NUR ---
Clonidine held Px's BP= 99/58mmHg. Clonidine 0.2 mg/tab, 1 tab held as standing order at 2100. We'll continue to monitor.
[2017-07-02] MEDS: CLONIDINE HCL 0.2 MG TABLET PO SCH (21:00)
[2017-07-02] MEDS ORDERED: DICY20TA28 PO (22:11)
[2017-07-02] MEDS ORDERED: IBUP-1955 PO (22:11)
[2017-07-02] MEDS ORDERED: DIPH50CA37 PO (22:11)
[2017-07-02] MEDS ORDERED: METH-406 PO (22:11)
[2017-07-02] MEDS ORDERED: CLON0.1T14 PO (22:11)
[2017-07-02] MEDS ORDERED: TRAZ-144 PO (22:11)
[2017-07-02] MEDS ORDERED: HYDR-3895 PO (22:11)
[2017-07-02] MEDS ORDERED: GABA-534 PO (22:11)
[2017-07-03] VITALS: BP 93/51
[2017-07-03 04:00] VITALS: BP 88/56
--- NOTE | 2017-07-03 04:00 | NUR ---
COWS and CIWA deferred COWS and CIWA deferred at 0000 and 0400 due to the px is asleep, to assess if the px is awake per doctor's order. We'll continue to monitor.
--- NOTE | 2017-07-03 07:22 | NUR ---
End of Shift Notes During the shift, Clonidine 0.2 mg/tab, 1 tab as standing order at 2099 was held due to low BP. At 2027, Vistaril 25 mg/cap, 1 cap given PO as PRN med for anxiety and it was effective. Last COWS 4 and CIWA 6. Pxs oral intake was 1 L, voided 2x, BM 2x. Px slept for 7 hours. Bed is in lowest position, side rails up 2x, and call light within reach. At 0630, px left sleeping on his bed. We'll continue to monitor. Endorse to AM shift nurse.
--- NOTE | 2017-07-03 07:50 | NUR ---
START OF SHIFT Pt is a 27 yr old male, AA&OX4. Pt was admitted on 06/27/17 for Opiate/Benzo Withdrawal and has completed 5 day Ativan and 5 day Subutex taper as ordered. Received report from caustic cresylate shift superintendent nurse. Pt received Vistaril PRN for anxiety during the night. Medication was effective. Pt slept for 7 hrs. Last COWS score was 4 and CIWA score was 6 at 2200. Pt is to be discharged home today. Pt is c/o anxiety but is able to cope with anxiety level. Skin is intact, warm and moist to touch. Pt is cooperative with morning VS and assessment. Pt is observed disheveled and unshaven. Safety precautions observed. Will continue to monitor.
[2017-07-03 08:00] VITALS: BP 100/61
[2017-07-03 08:36] VITALS: BP 100/61
[2017-07-03] MEDS: MULTIVITAMINS,THERAPEUTIC TABLET PO SCH (08:36)
[2017-07-03] MEDS: CLONIDINE HCL 0.1 MG TABLET PO SCH (08:36)
[2017-07-03] MEDS: BACLOFEN 10 MG TABLET PO SCH (08:36)
[2017-07-03] MEDS: DICYCLOMINE HCL 20 MG TABLET PO SCH (08:37)
[2017-07-03] MEDS: GABAPENTIN 300 MG CAPSULE PO SCH (08:37)
[2017-07-03] MEDS: FOLIC ACID 1 MG TABLET PO SCH (08:37)
--- NOTE | 2017-07-03 09:50 | NUR ---
DISCHARGE NOTE Pt is a 27 yr old male, AA&Ox4. pt was admitted on 06/27/17 for Opiate/Benzo Dependence and has completed 5 day Ativan and Subutex taper during his stay. Pt was cooperative with medication regimen and attended group sessions during his stay. Pt is observed with anxiety m/b pacing back and forth and observed with fine tremors on bilateral hands prior to discharge. Pt was educated on discharged package and was encouraged to continue to attend NA/AA meetings. Pt was educated on medication prescriptions, pt was able to verbalize understanding. Last COWS score was 6 and CIWA score was 6 at 0800. No PRN's were given prior to discharge. Pt left the unit at 0947, pt was discharged home in stable condition with all belongings and valuables. Pt did not bring any home medication.
== END 2017-07-03 09:47 | disposition home or self-care (01) | DRG 895 ==
LOC: SRC 06-27 19:22
PROVIDERS: ADMIT Internal Medicine; ATTEND Internal Medicine
PROC: HZ2ZZZZ Detoxification Services for Substance Abuse Treatment (ICD-10-PCS; principal; 2017-06-27)
PROC: HZ31ZZZ Individual Counseling for Substance Abuse Treatment, Behavioral (ICD-10-PCS; 2017-06-29)
PROC: HZ41ZZZ Group Counseling for Substance Abuse Treatment, Behavioral (ICD-10-PCS; 2017-06-30)
DX: F13.239 Sedative, hypnotic or anxiolytic dependence with withdrawal, unspecified (principal); F14.20 Cocaine dependence, uncomplicated; F12.10 Cannabis abuse, uncomplicated; Z91.89 Other specified personal risk factors, not elsewhere classified; F11.23 Opioid dependence with withdrawal; F17.210 Nicotine dependence, cigarettes, uncomplicated; G47.00 Insomnia, unspecified; F32.9 Major depressive disorder, single episode, unspecified; R73.9 Hyperglycemia, unspecified; E07.81 Sick-euthyroid syndrome; E05.90 Thyrotoxicosis, unspecified without thyrotoxic crisis or storm; F41.9 Anxiety disorder, unspecified
CPT/HCPCS: 36415; 70030-TC; 80307; 80349; 80353; 80361; 83690; 83735; 84443; 85025; 86592; 86705; 86803; 87340; 87806; G0480; Q0162

== ENCOUNTER 2017-09-28 20:39 | Inpatient (IN) | payer OTHER ==
[~2017-09-28] VITALS: Ht 185.4 cm; Wt 59.0 kg
[~2017-09-28 20:39] MED LIST changes: +CLON0.1T14 PO; +DIPH50CA37 PO; -ESCI10TA PO; +GABA-534 PO; -GABA-536 PO; +METH-406 PO; -ONDA4TAB11 SL
[2017-09-28 21:30] VITALS: BP 109/81
--- NOTE | 2017-09-28 21:30 | NUR ---
ADMISSION NOTE: Patient is a 27 year old male admitted to [facility] on 09/28/2017 at 2130 for Benzodiazepine/Xanax, Opioid/Heroin, and Methamphetamine withdrawal. Patient is ambulatory with steady gate. He is intoxicated. No S/S withdrawal at this time. Height: 73 inches; 130 lb by standing scale. VS: T: 98.3, BP: 109/81, HR 103, RR 18, RA O2SAT: 97%. Pain: "0/10". Patient noted disheveled, unkempt, uncombed. Patient appears sad, worry with poor eye contact and anxious mood. Patient is alert and oriented x4. Patient reports allergy to Quetiapine, is on Regular Diet, Full Code, is on Fall and Seizures Precautions. Patient history of "withdrawal-induced seizures in 2013". PMH: Anxiety, Depression. Patient does not have PCP. Patient unable provided UDS test at this time. Blood Labs drawn. Respirations even and unlabored. Lung Sounds are clear throughout. Patient denies SOB, cough, and chest pain. Bowel sounds active in all four quadrants. Skin check done. Skin is warm and dry to touch. Healed scab noted on the middle of the chest. Substance Use History: 1."Heroin smoking 4 grams every day since March 2017. Last smoked 4 grams on 09/28/2017 at 2100", 2."Xanax PO 8 mg every day. Last used on 09/28/2017 at 1400", 3."Methamphetamine Smoking 0,25 grams every day. Last smoked on 09/28/2017 at 1700". Patient reports " I am multiple time was on detox [facility] in [facility]: 10/2016, and 03/2018 . Last I was admitted on detox last week: I was at "[facility] 2 days and left AMA. Also, I was in "[facility] 3 days last week, and left AMA. I am tired of living like that, I decided: today it was last time I was going to use drugs. I want to live sober . I don't want to live like this anymore". MRSA done and sent to lab. Patient would like to continue to residential treatment after detox. He has support from his "sister". Patient reports " I am smoking every day during last 10 years 1 pack every day". Patient did not brought his home medications. Patient is high intoxicated. Doctor Jhonny Barrera MD aware. Orders placed. Patient oriented to unit. Educated patient about plan of care including detox, group activities therapy, individual therapy, and discharge planning. Encouraged patient to verbalize feelings. All needs met. Safe and calm environment with minimized noises was provided. Call light within reach. Bed locked and in lowest position. Padded side rails up x2. Will continue to monitor.
--- NOTE | 2017-09-28 21:30 | NUR ---
INTAKE NOTE: Patient's first assessment done in the floor. Patient is a 27 year old male. He is intoxicated. No S/S withdrawal at this time. Patient is alert and oriented x4 with stable gate. VS: T: 98.3, BP: 109/81, HR 103, RR 18, RA O2SAT: 97%. Pain: "0/10". Patient noted disheveled, unkempt, uncombed. Patient appears sad, worry with poor eye contact and anxious mood. Patient reports allergy to Quetiapine. Patient report History of Seizures in 2013. Patient reported using 1."Heroin smoking 4 grams every day since March 2017. Last smoked 4 grams on 09/28/2017 at 2100", 2."Xanax PO 8 mg every day. Last used on 09/28/2017 at 1400", 3."Methamphetamine Smoking 0,25 grams every day. Last smoked on 09/28/2017 at 1700". Explained rules and regulations of the unit. Will further assess patient in his room.
[2017-09-28] MEDS ORDERED: ACETAMINOPHEN 325 MG TABLET PO PRN (22:15)
[2017-09-28] MEDS ORDERED: ONDANSETRON ODT 4 MG TAB.RAPDIS SL PRN (22:15)
[2017-09-28] MEDS ORDERED: LORAZEPAM 2 MG/1 ML VIAL IM PRN (22:15)
[2017-09-28] MEDS ORDERED: MIRALAX 17 GM POWD.PACK PO PRN (22:15)
[2017-09-28] MEDS ORDERED: DICYCLOMINE HCL 20 MG TABLET PO PRN (22:15)
[2017-09-28] MEDS ORDERED: MAGNESIUM HYDROXIDE 30 ML LIQUID UDC PO PRN (22:15)
[2017-09-28] MEDS ORDERED: LOPERAMIDE HCL 2 MG CAPSULE PO PRN ×2 (22:15)
[2017-09-28] MEDS ORDERED: MAG HYDROX/AL HYDROX/SIMETH 30 ML LIQUID UDC PO PRN (22:15)
[2017-09-28] MEDS ORDERED: LORAZEPAM 1 MG TABLET PO PRN (22:15)
[2017-09-28] MEDS ORDERED: ONDANSETRON 4 MG/2 ML VIAL IM PRN (22:15)
[2017-09-28] MEDS ORDERED: BUPRENORPHINE HCL 2 MG TAB.SUBL SL PRN (22:15)
[2017-09-28] MEDS: IBUPROFEN 600 MG TABLET PO PRN (22:42)
--- NOTE | 2017-09-28 22:42 | NUR ---
PRN MOTRIN 600 MG PO ADMINISTRATION Patient c/o headache "11/30". PRN Motrin 600 mg PO administrated as ordered with full glass of water. Patient tolerated well. All needs met. Safety measures in place: Call light within reach, bed is locked in lowest position, padded bed rails up bilaterally. Will continue to monitor closely.
--- NOTE | 2017-09-28 23:42 | NUR ---
RE-ASSESSMENT PRN Motrin 600 mg PO administrated as ordered for headache "11/30" @2242 was effective. Patient is sleeping. RR 15. Respirations are even and unlabored. All needs met. Safety measures in place: Call light within reach, bed is locked in lowest position, padded bed rails up bilaterally. Will continue to monitor closely.
[2017-09-29] VITALS: BP 117/70
[2017-09-29] LABS: BASOPHILS % (AUTO) 0.7 % (0.0-2.0); EOSINOPHILS # (AUTO) 0.3 K/uL (0.0-0.7); EOSINOPHILS % (AUTO) 4.5 % (0.0-7.0); HEMATOCRIT 37.7 % (36.7-47.1); LYMPHOCYTES # (AUTO) 2.2 K/uL (20.0-40.0); LYMPHOCYTES % (AUTO) 36.4 % (20.5-51.5); MEAN CORPUSCULAR HEMOGLOBIN 28.5 uug (23.8-33.4); MEAN CORPUSCULAR HGB CONC 35 g/dL (32.5-36.3); MEAN CORPUSCULAR VOLUME 82.7 fL (73.0-96.2); MONOCYTES # (AUTO) 0.5 K/uL (2.0-10.0); MONOCYTES % (AUTO) 7.4 % (0.0-11.0); NEUTROPHILS # (AUTO) 3.1 K/uL (1.8-8.9); PLATELET COUNT (AUTO) 212 K/uL (152-348); RED BLOOD CELL COUNT(AUTO) 4.56 MIL/uL (4.06-5.63); WHITE BLOOD COUNT (AUTO) 6.2 K/uL (3.6-10.2)
[2017-09-29 00:11] LABS: ALANINE AMINOTRANSFERASE 26 U/L (16-63); ALKALINE PHOSPHATASE 72 U/L (50-136); ASPARTATE AMINOTRANSFERASE 21 U/L (15-37); BILIRUBIN,TOTAL 0.5 mg/dL (0.2-1.0); CARBON DIOXIDE 30 mmol/L (21-32); CHLORIDE 104 mmol/L (98-107); GLUCOSE 104 mg/dL (74-106); MAGNESIUM 2.5 mg/dL (1.8-2.4); POTASSIUM 3.9 mmol/L (3.5-5.1); TOTAL PROTEIN, SERUM 6.4 g/dL (6.4-8.2); UREA NITROGEN, BLOOD 14 mg/dL (7-18)
[2017-09-29 00:15] LABS: ETHANOL < 3 MG/DL (0-0)
[2017-09-29] MEDS: diphenhydrAMINE 50 MG CAPSULE PO PRN (00:36)
[2017-09-29] MEDS: LORAZEPAM 1 MG TABLET PO PRN (00:36)
--- NOTE | 2017-09-29 00:36 | NUR ---
PRN ATIVAN 2 MG PO AND PRN Benadryl 50 mg PO ADMINISTRATION Patient c/o increased anxiety, agitation, tremors, and insomnia PRN Ativan 2 mg PO administrated for CIWA=14, and PRN Benadryl 50 mg PO administrated for insomnia as ordered. Patient tolerated well. All needs met. Safe and calm environment with minimized noises was provided. Safety measures on place. Call light within reach, bed locked in lowest position, padded rails up bilaterally. Will continue to monitor closely.
[2017-09-29 00:45] LABS: *AMPHETAMINE, URINE POSITIVE (NEGATIVE); *BARBITURATE, URINE POSITIVE (NEGATIVE); *CANNABINOID, URINE POSITIVE (NEGATIVE); *COCCAINE, URINE NEGATIVE (NEGATIVE); *OPIATE, URINE POSITIVE (NEGATIVE); *PHENCYCLIDINE SCREEN,URINE NEGATIVE (NEGATIVE)
--- NOTE | 2017-09-29 01:36 | NUR ---
RE-ASSESSMENT Patient is sleeping. Respirations even and unlabored. RR 15. PRN Ativan 2 mg PO administrated for CIWA=14,and PRN Benadryl 50 mg PO administrated for insomnia as ordered at 0036 were effective. All needs met. Safe and calm environment with minimized noises was provided. Safety measures on place. Call light within reach, bed locked in lowest position, padded rails up bilaterally. Will continue to monitor closely.
[2017-09-29 04:00] VITALS: BP 97/72
--- NOTE | 2017-09-29 07:15 | NUR ---
START OF SHIFT: PATIENT IS A 27 YR OLD MALE ADMITTED TO [facility] ON 09/28/17 FOR A MEDICALLY SUPERVISED WITHDRAWAL FROM BENZODIAZEPINES, OPIATES AND METH. HE IS ASLEEP AT THIS TIME, BED LOW AND LOCKED WITH SIDE RAILS UP X 2 BREATHING EVEN AND UNLABORED. PRN MEDS GIVEN ON PM SHIFT : MOTRIN, ATIVAN AND BENADRYL. PATIENT SLEPT FOR 5+ HOURS, LAST COWS 11 AND CIWA 11 @ 0400. HE IS ON A 5 DAY ATIVAN / SUBUTEX TAPER AND THIS IS DAY 1. CONTINUE TO FOLLOW MD PLAN OF CARE.
--- NOTE | 2017-09-29 07:16 | NUR ---
END OF SHIFT NOTE: Patient is a 27 year old male admitted to [facility] on 09/28/2017 for Benzodiazepines/Xanax, Opioid/ Heroin and Methamphetamine dependence. 5 Day Ativan and 5 Day Subutex Taper ordered. Patient reports Allergy to Seroquel, is on Full Code, Regular diet, Fall and Seizures Precautions. Patient reports History of Seizures(2013). Initial COWS =16, CIWA=14 @0000. The most recent COWS=11, CIWA=11@0400: during my shift patient presented with anxiety, agitation, nervousness, stomach cramps, body aches, restlessness, sweating, tremors, body aches, insomnia, nasal stuffiness, and moist eyes. VSWNL. Skin is intact, warm and dry to touch. PRN Motrin 600 mg PO administrated as ordered for headache "11/30" @2242PRN Ativan 2 mg PO administrated for CIWA=14,and PRN Benadryl 50 mg PO administrated for insomnia as ordered at 0036 were effective. Patient remains compliant with treatment plan, medications, and diet regime. Patient slept 5 hours, intake 500 ml, voided x1. Encouraged fluids intake as tolerated. All needs met. Safety measures on place. Call light within reach, bed in lowest position and locked, padded rails up bilaterally. Patient endorsed to day shift nurse. Report given.
[2017-09-29 08:00] VITALS: BP 104/58
[2017-09-29] MEDS: BUPRENORPHINE HCL 2 MG TAB.SUBL SL SCH ×4 (09:00→21:00)
[2017-09-29] MEDS ORDERED: TUBERCULIN,PURIF.PROT.DERIV. 5 TU/0.1 ML TEST ID ONE (09:00)
[2017-09-29] MEDS: GABAPENTIN 300 MG CAPSULE PO SCH ×2 (10:17→23:55)
[2017-09-29] MEDS: CARBAMIDE PEROXIDE OTIC DROP 15 ML BOTTLE EACH EAR SCH ×2 (10:18→21:00)
[2017-09-29] MEDS: LORAZEPAM 1 MG TABLET PO SCH ×4 (10:18→23:55)
--- NOTE | 2017-09-29 10:20 | NUR ---
PPD ADMINISTERED TO LEFT FOREARM
[2017-09-29 12:00] VITALS: BP 113/68
[2017-09-29] MEDS: ENSURE WITH FIBER 237 ML LIQUID (CHOCOLATE) PO SCH ×2 (13:25→17:36)
[2017-09-29 16:00] VITALS: BP 101/57
[2017-09-29] MEDS: METHOCARBAMOL 750 MG TABLET PO PRN (17:27)
[2017-09-29] MEDS: IBUPROFEN 600 MG TABLET PO PRN (17:27)
--- NOTE | 2017-09-29 17:30 | NUR ---
PRN ROBAXIN/MOTRIN ROBAXIN 750MG PO AND MOTRIN 600 MG PO GIVEN FOR MUSCLE CRAMPS/ BODY ACHES 11/30 WILL REASSESS
--- NOTE | 2017-09-29 18:30 | NUR ---
PRN REASSESS PATIENT IS ASLEEP IN BED, BREATHING EVEN AND UNLABORED, SIDE RAILS UP X 2.
--- NOTE | 2017-09-29 18:59 | NUR ---
END OF SHIFT : PATIENT IS A 27 YR OLD MALE ADMITTED TO [facility] ON 09/28/17 FOR A MEDICALLY SUPERVISED WITHDRAWAL FROM BENZODIAZEPINES, OPIATES AND METHAMPHETAMINES. MD HAS PLACED HIM ON A 5 DAY SUBUTEX/ATIVAN TAPER AND THIS IS DAY 1. HE HAS NOT STARTED SUBUTEX OF YET HE STATES HE IS NOT IN WITHDRAWAL YET. PATIENT APPEARS MALNOURISHED, DEPRESSED AND ANXIOUS, HE STATES LOSING 30LBS IN WEIGHT IN THE PAST FEW MONTHS, ORDER FOR BOOST SUPPLEMENT ADDED TO MEALS. PATIENT HAS AN APPETITE AND IS EATING 100% OF ALL MEALS. PATIENT HAD A FLUID INTAKE OF 2175 ML, 2 VOIDS AND 1 BM. LAST COWS 8 AND CIWA 11 @ 1700. CONTINUE TO FOLLOW MD PLAN OF CARE. ENDORSED TO NIGHT NURSE.
--- NOTE | 2017-09-29 19:12 | NUR ---
Start of shift note Received report from eder shift nurse. Pt is a 27 yo male, A+Ox4, presenting to [facility] for Benzo/Opiate/Meth withdrawal. PT has HX of Anxiety, Depression, and Seizure which will be monitored during shift. Pt is on 5 day Ativan and 5 day Subutex tapers, tolerated well. Respirations even and unlabored. Will continue to monitor. Addendum: 09/29/17 at 2028 by DANY ROSAS LVN Pt noted with agitation, anxiety, and restlessness.
[2017-09-29 20:15] VITALS: BP 104/65
[2017-09-30 00:46] VITALS: BP 118/69
[2017-09-30] MEDS: LORAZEPAM 1 MG TABLET PO PRN (02:04)
[2017-09-30] MEDS: diphenhydrAMINE 50 MG CAPSULE PO PRN ×2 (02:04→21:44)
--- NOTE | 2017-09-30 02:04 | NUR ---
PRN Ativan 2mg and PRN Benadryl Pt c/o anxiety and inability to sleep and noted with CIWA: 13. PRN Ativan 2mg and PRN Benadryl given and tolerated well. Will reassess within 1 HR. Will continue to monitor.
--- NOTE | 2017-09-30 03:00 | NUR ---
PRN Ativan 2mg and PRN Benadryl Reassessment Medications effective. Pt expresses reduction in anxiety, is resting well in bed, and noted with CIWA: 10. No s/s of ASE noted at this time. Respirations even and unlabored. Will continue to monitor.
[2017-09-30 04:03] VITALS: BP 114/75
--- NOTE | 2017-09-30 06:56 | NUR ---
End of shift note Pt was continuously noted with anxiety, agitation, sweats, chills, anxiety, tremors, insomnia, and restlessness. Pt remained in room for majority of shift except to get food from kitchen and to go smoke on smoking patio. Pt is on 5 day Ativan and 5 day Subutex tapers, tolerated well. Pt was given PRN Ativan 2mg and PRN Benadryl @0204. Pt slept for a total of 7 HRS. Last COWS: 9 and Last CIWA: 9 @0400. Respirations even and unlabored. Will endorse to day shift nurse.
--- NOTE | 2017-09-30 07:00 | NUR ---
Start of Shift Notes: Received patient in his room. Alert and oriented x 4. Verbally responsive. Awake. He denies S/I or H/I noted. No AV hallucinations noted. Patient states "Where's breakfast and what time are meds coming?" Patient education provided regarding his medication regimen and current plan of care for the day. He appears disheveled with flat affect. Room is messy with dirty linen on the floor and empty water bottles. Encouraged maintenance of personal hygiene and space. Patient is a 27 year old male admitted for BZO and opiate withdarwal who was placed on 5-day Subutex and 5-day Ativan taper as ordered. No adverse reactions noted. He refused his Subutex last night but was given PRN Ativan 2 mg and Benadryl which was effective. Last / 9. Slept for 7 hours. Will continue to monitor.
[2017-09-30 08:00] VITALS: BP 113/70
[2017-09-30 08:06] LABS: HEPATITIS B SURFACE AG Negative (Negative)
[2017-09-30] MEDS: ENSURE WITH FIBER 237 ML LIQUID (CHOCOLATE) PO SCH ×3 (08:28→17:26)
[2017-09-30] MEDS ORDERED: HYDROXYZINE PAMOATE 25 MG CAPSULE PO PRN (09:00)
[2017-09-30] MEDS: BUPRENORPHINE HCL 2 MG TAB.SUBL SL SCH ×3 (09:00→21:00)
[2017-09-30] MEDS: CARBAMIDE PEROXIDE OTIC DROP 15 ML BOTTLE EACH EAR SCH ×2 (09:13→21:44)
[2017-09-30] MEDS: METHOCARBAMOL 750 MG TABLET PO PRN ×2 (09:13→17:22)
[2017-09-30] MEDS: GABAPENTIN 300 MG CAPSULE PO SCH ×2 (09:13→21:40)
[2017-09-30] MEDS: LORAZEPAM 1 MG TABLET PO SCH ×3 (09:13→21:40)
[2017-09-30] MEDS: CLONIDINE HCL 0.1 MG TABLET PO PRN ×2 (09:13→17:22)
--- NOTE | 2017-09-30 09:13 | NUR ---
Clonidine 0.1mg/Robaxin 750 mg PO Patient noted with complains of anxiety/agitation, chills, hot flashes, and sweats. Also complains of 6/10 generalized pain related to withdrawals. Medicated patient with Clonidine 0.1mg PO and Robaxin 750 mg PO as ordered. Will monitor for effectiveness.
--- NOTE | 2017-09-30 09:21 | NUR ---
Subutex 4 mg SL refused: COWS 14, complains of chills, hot flashes, anxiety and agitation, and myalgia. Patient refused Subutex 4 mg SL as ordered. Patient states "I'm not ready for that yet. I'm OK for now." Educated patient on the risk and benefits but patient still refused. Will continue to monitor.
--- NOTE | 2017-09-30 10:13 | NUR ---
Re-assessment: Clonidine/ Robaxin Patient verbalizes relief from anxiety, chills, hot flashes, sweats and myalgia. PL is now 07/31. Clonidine/Robaxin was effective.
[2017-09-30 12:00] VITALS: BP 101/62
[2017-09-30 16:00] VITALS: BP 131/72
--- NOTE | 2017-09-30 17:22 | NUR ---
PRN Bentyl 20mg PO, Robaxin 750mg, Clonidine 0.1mg PO, Vistaril 25mg PO administered for abdominal spasm, myalgia on BLE, irritability, agitation, and anxiety respectively. Primary to reassess. call light within reach.
[2017-09-30] MEDS ORDERED: BUPRENORPHINE HCL 2 MG TAB.SUBL SL ONE (17:45)
--- NOTE | 2017-09-30 17:45 | NUR ---
MD Communication: COWS 17, patient due to abdominal cramps, anxiety and agitation, sweating, tremors, chills and hot flashes. Notified Dr. Barrera and obtained orders for patient to receive OT Subutex 4 mg SL as ordered. Will monitor for effectiveness.
--- NOTE | 2017-09-30 17:49 | NUR ---
Subutex 4 mg SL given: OT Subutex 4 mg SL given at this time for COWS 17. Will monitor for effectiveness.
--- NOTE | 2017-09-30 18:19 | NUR ---
Re-assessment: Subutex COWS 9, PRN Subutex was effective in reducing his withdrawal symptoms. [facility]
--- NOTE | 2017-09-30 18:22 | NUR ---
Bentyl/Robaxin and Clonidine: Patient states that abdominal cramps have ceased. Myalgia is now /, Less chills and hot flashes noted. Skin warm and dry to touch. PRN Bentyl/Clonidine and Robaxin were effective. Addendum: 09/30/17 at 1847 by PEYTON FELIPE LVN Re-assessment note:
--- NOTE | 2017-09-30 19:06 | NUR ---
End of Shift Notes: Patient continues to be on 5-day Ativan and 5-day Subutex taper as ordered. He is currently on day 2. Tolerating well. VS monitored closely. No significant abnormalities noted. Withdrawal symptoms were closely monitored. Initial COWS 14/CIWA 14, patient presented with chills, hot flashes, restlessness, nasal stuffiness, yawning, anxiety, agitation, tremors and sweats. Medicated patient with Clonidine 0.1mg PO and Robaxin 750 mg PO as ordered at 0913 with help after 1 hour. Last COWS 9/CIWA 12. At 1722, patient was given Bentyl 20 mg, Clonidine, Robaxin and OT Subutex at 1749 for COWS 17. Shower was encouraged during the shift. Patient was odorous and showed no regards to personal hygiene and space. He requires encouragement to learn proper self care and hygiene. He refused Subutex at 0900 and 1500 dose, stating that he was not ready although encouraged. He was seen and examined by Dr. Barrera today. Unable to participate in group and activities due to his withdrawal symptoms. All needs met and attended. Will continue to monitor closely.
--- NOTE | 2017-09-30 19:11 | NUR ---
Start of shift note Received report from day shift nurse. Pt is a 27 yo male, A+Ox4, presenting to [facility] for Benzo/Opiate withdrawal. Pt noted to be Anxious, agitated, restless, having sweats, chills, and fine tremors. Pt has HX of Anxiety, depression, and Seizure which will be monitored during shift. Pt is on 5 day Ativan and 5 day Subutex tapers, tolerated well. Pt is on room restriction for behavior. Respirations even and unlabored. Will continue to monitor.
[2017-09-30 20:08] VITALS: BP 112/59
[2017-09-30] MEDS ORDERED: BUPRENORPHINE HCL 2 MG TAB.SUBL SL PRN (21:00)
--- NOTE | 2017-09-30 21:44 | NUR ---
PRN Benadryl Pt c/o inability to sleep and requested for PRN Benadryl. Medication given and tolerated well. Will reassess within 1 HR. Will continue to monitor.
--- NOTE | 2017-09-30 22:40 | NUR ---
PRN Benadryl Reassessment Medication effective. Pt is resting well in bed. No s/s of ASE noted at this time. Respirations even and unlabored. Will continue to monitor.
[2017-10-01 00:17] VITALS: BP 95/58
[2017-10-01 04:16] VITALS: BP 97/66
--- NOTE | 2017-10-01 07:00 | NUR ---
End of shift note Pt was continuously noted with agitation, anxiety, restlessness, sweats, and chills. Pt remains on room restriction for behavior and remained in room for majority of shift except to go smoke on smoking patio. Pt is on 5 day Ativan and 5 day Subutex tapers, tolerated well. Pt was given PRN Benadryl @9785. Pt slept for a total of 9 HRS. Last COWS: 7 and Last CIWA: 7 @0400. Respirations even and unlabored. Will endorse to day shift nurse.
--- NOTE | 2017-10-01 07:30 | NUR ---
Start of Shift Insole Lip Turner received report on 27 year old male admitted to [facility] on 09/28/17 for medical management of Benzodiazepine and Opiate withdrawals. Pt endorses allergy to Seroquel, full code and regular diet. Pt has history of withdrawal related seizure in 2013. Denies any PMH, PPH of anxiety and depression. Pt currently on Ativan and Subutex taper and has tolerated well with last Cows 7 and CIWA 7, per NOC report. Pt administered Benadryl(insomnia) on NOC, per report. Insole Lip Turner encounters pt in his room resting with eyes closed, rise and fall of chest noted, with even and unlabored respiration. Bed in low positions with wheels locked and side rails up x2. Will continue to monitor, support and encourage according to plan of care.
[2017-10-01] MEDS ORDERED: LORAZEPAM 1 MG TABLET PO SCH ×3 (09:00→21:00)
[2017-10-01] MEDS ORDERED: BUPRENORPHINE HCL 2 MG TAB.SUBL SL SCH ×2 (09:00→15:00)
[2017-10-01 09:53] VITALS: BP 106/58
[2017-10-01] MEDS: CARBAMIDE PEROXIDE OTIC DROP 15 ML BOTTLE EACH EAR SCH (09:58)
[2017-10-01] MEDS: GABAPENTIN 300 MG CAPSULE PO SCH (09:59)
[2017-10-01] MEDS: ENSURE WITH FIBER 237 ML LIQUID (CHOCOLATE) PO SCH ×2 (09:59→12:28)
[2017-10-01 12:21] VITALS: BP 97/48
[2017-10-01] MEDS ORDERED: GABAPENTIN 300 MG CAPSULE PO SCH ×2 (15:00→21:00)
[2017-10-01] MEDS ORDERED: DICYCLOMINE HCL 20 MG TABLET PO SCH (15:00)
--- NOTE | 2017-10-01 16:53 | NUR ---
AMA Discharge Pt decided to leave AMA after multiple attempts by parts data writer, staff, and admonistration to redirect pt's decision. Pt educated on the risks of leaving AMA. Pt endorses a thorough knowledge of the AMA process and endorses a complete understanding of the consequences of AMA discharge. Pt denies any further comments, questions or concerns. Pt denies SI/HI, A/VH or any other associated symptoms. Pt is irritable, manipulative and has an angry affect, although pt is pleasant with parts data writer. No home medications to return. Pt signed AMA paperwork and was provided with community resource numbers. Pt escorted to [facility] by staff and exited [facility] per ambulation.
[2017-10-02] MEDS ORDERED: LORAZEPAM 1 MG TABLET PO SCH (09:00)
[2017-10-02] MEDS ORDERED: BUPRENORPHINE HCL 2 MG TAB.SUBL SL SCH (09:00)
[2017-10-03] MEDS ORDERED: BUPRENORPHINE HCL 2 MG TAB.SUBL SL SCH (09:00)
[2017-10-03] MEDS ORDERED: LORAZEPAM 1 MG TABLET PO SCH (09:00)
[2017-10-04] MEDS ORDERED: LORAZEPAM 1 MG TABLET PO SCH (09:00)
[2017-10-04] MEDS ORDERED: BUPRENORPHINE HCL 2 MG TAB.SUBL SL SCH (09:00)
== END 2017-10-01 16:53 | disposition left against medical advice (07) | DRG 894 ==
LOC: SRC 21:00
PROVIDERS: ADMIT Internal Medicine; ATTEND Internal Medicine
PROC: HZ2ZZZZ Detoxification Services for Substance Abuse Treatment (ICD-10-PCS; principal; 2017-09-28)
DX: F11.23 Opioid dependence with withdrawal (principal); Z86.74 Personal history of sudden cardiac arrest; F13.232 Sedative, hypnotic or anxiolytic dependence with withdrawal with perceptual disturbance; F41.9 Anxiety disorder, unspecified; Z91.89 Other specified personal risk factors, not elsewhere classified; F17.210 Nicotine dependence, cigarettes, uncomplicated; Z59.0 Homelessness; G47.00 Insomnia, unspecified; Z59.1 Inadequate housing; F14.10 Cocaine abuse, uncomplicated; F12.10 Cannabis abuse, uncomplicated; F32.9 Major depressive disorder, single episode, unspecified; F15.10 Other stimulant abuse, uncomplicated
CPT/HCPCS: 36415; 80307; 80324; 80345; 80346; 80349; 80361; 83735; 85025; 86580; 86592; 86705; 86803; 87340; 87806; G0480; Q0163

== ENCOUNTER 2018-06-08 17:19 | Inpatient (IN) | payer OTHER ==
[~2018-06-08] VITALS: Ht 185.4 cm; Wt 68.0 kg
[2018-06-08 20:30] VITALS: BP 112/67
[2018-06-08] MEDS ORDERED: ONDANSETRON 4 MG/2 ML VIAL IM PRN (20:30)
[2018-06-08] MEDS ORDERED: THIAMINE HCL 200 MG/2 ML VIAL IM ONE (20:30)
[2018-06-08] MEDS ORDERED: MIRALAX 17 GM POWD.PACK PO PRN (20:30)
[2018-06-08] MEDS ORDERED: MAG HYDROX/AL HYDROX/SIMETH 30 ML LIQUID UDC PO PRN (20:30)
[2018-06-08] MEDS ORDERED: SRC OPIOID WITHDRAWAL ADMITTING PROTOCOL XX PRN (20:30)
[2018-06-08] MEDS ORDERED: IBUPROFEN 600 MG TABLET PO PRN (20:30)
[2018-06-08] MEDS ORDERED: LORAZEPAM 2 MG/1 ML VIAL IM PRN (20:30)
[2018-06-08] MEDS ORDERED: HYDROXYZINE PAMOATE 25 MG CAPSULE PO PRN (20:30)
[2018-06-08] MEDS ORDERED: LORAZEPAM 0.5 MG TABLET PO PRN ×2 (20:30)
[2018-06-08] MEDS ORDERED: diphenhydrAMINE 50 MG CAPSULE PO PRN (20:30)
[2018-06-08] MEDS ORDERED: ACETAMINOPHEN 325 MG TABLET PO PRN (20:30)
[2018-06-08] MEDS ORDERED: SRC ALCOHOL WITHDRAWAL ADMITTING PROTOCOL XX PRN (20:30)
[2018-06-08] MEDS ORDERED: MAGNESIUM HYDROXIDE 30 ML LIQUID UDC PO PRN (20:30)
[2018-06-08] MEDS ORDERED: METHOCARBAMOL 750 MG TABLET PO PRN (20:30)
[2018-06-08] MEDS ORDERED: ONDANSETRON ODT 4 MG TAB.RAPDIS SL PRN (20:30)
[2018-06-08] MEDS ORDERED: BUPRENORPHINE HCL 2 MG TAB.SUBL SL PRN (20:30)
[2018-06-08] MEDS ORDERED: CLONIDINE HCL 0.1 MG TABLET PO PRN (20:30)
[2018-06-08] MEDS ORDERED: LOPERAMIDE HCL 2 MG CAPSULE PO PRN ×2 (20:30)
[2018-06-08 21:43] LABS: ALANINE AMINOTRANSFERASE 19 U/L (16-63); ALKALINE PHOSPHATASE 60 U/L (50-136); AMYLASE 92 U/L (25-115); ASPARTATE AMINOTRANSFERASE 12 U/L (15-37); BILIRUBIN,TOTAL 0.2 mg/dL (0.2-1.0); CARBON DIOXIDE 33 mmol/L (21-32); CHLORIDE 104 mmol/L (98-107); GLUCOSE 72 mg/dL (74-106); LIPASE 108 U/L (73-393); MAGNESIUM 2.1 mg/dL (1.8-2.4); POTASSIUM 4.4 mmol/L (3.5-5.1); TOTAL PROTEIN, SERUM 7.7 g/dL (6.4-8.2); UREA NITROGEN, BLOOD 14 mg/dL (7-18)
[2018-06-08 21:50] LABS: BASOPHILS # (AUTO) 0.1 K/uL (0.0-8.0); BASOPHILS % (AUTO) 0.7 % (0.0-2.0); EOSINOPHILS # (AUTO) 0.2 K/uL (0.0-0.7); EOSINOPHILS % (AUTO) 2.4 % (0.0-7.0); HEMOGLOBIN 14.6 g/dL (12.5-16.3); LYMPHOCYTES # (AUTO) 3.5 K/uL (20.0-40.0); LYMPHOCYTES % (AUTO) 38.9 % (20.5-51.5); MEAN CORPUSCULAR HEMOGLOBIN 30.1 uug (23.8-33.4); MEAN CORPUSCULAR HGB CONC 35 g/dL (32.5-36.3); MEAN CORPUSCULAR VOLUME 86.2 fL (73.0-96.2); MONOCYTES # (AUTO) 0.6 K/uL (2.0-10.0); MONOCYTES % (AUTO) 6.3 % (0.0-11.0); NEUTROPHILS # (AUTO) 4.7 K/uL (1.8-8.9); NEUTROPHILS % (AUTO) 51.7 % (38.5-71.5); PLATELET COUNT (AUTO) 230 K/uL (152-348); RED BLOOD CELL COUNT(AUTO) 4.87 MIL/uL (4.06-5.63); WHITE BLOOD COUNT (AUTO) 9.1 K/uL (3.6-10.2)
[2018-06-08 22:08] LABS: ETHANOL < 3 MG/DL (0-0)
[2018-06-08 22:09] LABS: *AMPHETAMINE, URINE NEGATIVE (NEGATIVE); *BARBITURATE, URINE NEGATIVE (NEGATIVE); *CANNABINOID, URINE POSITIVE (NEGATIVE); *COCCAINE, URINE POSITIVE (NEGATIVE); *OPIATE, URINE POSITIVE (NEGATIVE); *PHENCYCLIDINE SCREEN,URINE NEGATIVE (NEGATIVE)
[2018-06-08 22:14] LABS: THYROID STIMULATING HORMONE 2.548 mIU/mL (0.358-3.740)
[2018-06-09 00:40] VITALS: BP 110/63
[2018-06-09 04:32] VITALS: BP 106/63
[2018-06-09 08:00] VITALS: BP 110/62
[2018-06-09] MEDS ORDERED: FOLIC ACID 1 MG TABLET PO SCH (09:00)
[2018-06-09] MEDS ORDERED: TUBERCULIN,PURIF.PROT.DERIV. 5 TU/0.1 ML TEST ID ONE (09:00)
[2018-06-09] MEDS ORDERED: MULTIVITAMINS,THERAPEUTIC TABLET PO SCH (09:00)
[2018-06-09] MEDS ORDERED: THIAMINE HCL 100 MG TABLET PO SCH (09:00)
[2018-06-09] MEDS ORDERED: 5 DAY TAPER OF LORAZEPAM -SERENITY PROTOCOL PO PRN (11:30)
[2018-06-09 12:00] VITALS: BP 111/75
[2018-06-09] MEDS ORDERED: LORAZEPAM 0.5 MG TABLET PO SCH (15:00)
[2018-06-09] MEDS ORDERED: NALO4SPR NS (15:08)
[2018-06-10 05:06] LABS: HEPATITIS B SURFACE AG Negative (Negative)
[2018-06-10] MEDS ORDERED: 4 DAY TAPER BUPRENORPHINE -SERENITY PROTOCOL SL PRN (09:00)
[2018-06-10] MEDS ORDERED: BUPRENORPHINE HCL 2 MG TAB.SUBL SL SCH (09:00)
[2018-06-10] MEDS ORDERED: LORAZEPAM 0.5 MG TABLET PO SCH (09:00)
[2018-06-11] MEDS ORDERED: BUPRENORPHINE HCL 2 MG TAB.SUBL SL SCH ×2 (09:00→15:00)
[2018-06-11] MEDS ORDERED: LORAZEPAM 0.5 MG TABLET PO SCH (09:00)
[2018-06-12] MEDS ORDERED: BUPRENORPHINE HCL 2 MG TAB.SUBL SL SCH (09:00)
[2018-06-12] MEDS ORDERED: LORAZEPAM 0.5 MG TABLET PO SCH (09:00)
[2018-06-13] MEDS ORDERED: BUPRENORPHINE HCL 2 MG TAB.SUBL SL SCH (09:00)
[2018-06-13] MEDS ORDERED: LORAZEPAM 0.5 MG TABLET PO SCH (09:00)
== END 2018-06-09 14:11 | disposition left against medical advice (07) | DRG 894 ==
LOC: SRC 19:37
PROVIDERS: ADMIT Family Medicine Addiction Medicine; ATTEND Family Medicine Addiction Medicine
PROC: HZ2ZZZZ Detoxification Services for Substance Abuse Treatment (ICD-10-PCS; principal; 2018-06-08)
PROC: HZ31ZZZ Individual Counseling for Substance Abuse Treatment, Behavioral (ICD-10-PCS; 2018-06-09)
DX: F11.23 Opioid dependence with withdrawal (principal); F10.230 Alcohol dependence with withdrawal, uncomplicated; Y90.9 Presence of alcohol in blood, level not specified; F41.1 Generalized anxiety disorder; F13.239 Sedative, hypnotic or anxiolytic dependence with withdrawal, unspecified; F32.9 Major depressive disorder, single episode, unspecified
CPT/HCPCS: 36415; 80307; 80349; 80353; 80361; 83690; 83735; 84443; 85025; 86580; 86592; 86705; 86803; 87340; 87806; G0480

== ENCOUNTER 2018-09-09 16:19 | Emergency (ER) | payer OTHER ==
[~2018-09-09] VITALS: Ht 185.4 cm; Wt 68.0 kg
[~2018-09-09 16:19] MED LIST changes: -BACL20TA PO; -CLON0.1T14 PO; -DICY20TA28 PO; -DIPH50CA37 PO; -GABA-534 PO; -HYDR-3895 PO; -IBUP-1955 PO; -METH-406 PO; +NALO4SPR NS; -TRAZ-144 PO
--- NOTE | 2018-09-09 16:35 | NUR ---
NARDA ROWLEY AT BEDSIDE FOR MSE.
--- NOTE | 2018-09-09 16:41 | NUR ---
Patient discharged to home in stable conditon. Written and verbal after care instructions given. Patient verbalizes understanding of instructions. PT D/C W/ PRESCRIPTION. ALL BELONGINGS W/ PT. PT SELF-AMBULATED W/O DIFFICULTY.
[2018-09-09 16:42] VITALS: BP 131/82
== END 2018-09-09 16:42 | disposition home or self-care (01) ==
LOC: ER 16:21
DX: F41.9 Anxiety disorder, unspecified (principal); F17.290 Nicotine dependence, other tobacco product, uncomplicated; Z88.8 Allergy status to other drugs, medicaments and biological substances; Z79.899 Other long term (current) drug therapy
CPT/HCPCS: A4663

== ENCOUNTER 2018-10-14 13:42 | Emergency (ER) | payer SELFPAY ==
[~2018-10-14] VITALS: Ht 185.4 cm; Wt 68.0 kg
[2018-10-14] MEDS ORDERED: ALPR2TAB7 PO (13:55)
--- NOTE | 2018-10-14 14:04 | NUR ---
Dr. Zuniga at the bedside for MSE.
--- NOTE | 2018-10-14 14:28 | NUR ---
Patient discharged to home in stable conditon. Written and verbal after care instructions given. Patient verbalizes understanding of instructions.
== END 2018-10-14 14:28 | disposition home or self-care (01) ==
LOC: ER 13:42
DX: F41.9 Anxiety disorder, unspecified (principal); F17.200 Nicotine dependence, unspecified, uncomplicated; Z76.0 Encounter for issue of repeat prescription; Z79.899 Other long term (current) drug therapy
CPT/HCPCS: A4663

== ENCOUNTER 2019-03-06 12:13 | Emergency (ER) | payer SELFPAY ==
[~2019-03-06] VITALS: Ht 185.4 cm; Wt 68.0 kg
[~2019-03-06 12:13] MED LIST changes: +ALPR2TAB7 PO; -NALO4SPR NS
--- NOTE | 2019-03-06 12:25 | NUR ---
PT WAS EVALUATED BY DR MOSS. PT WAS D/C'd TO HOME. D/C INSTRUCTIONS GIVEN TO THE PT BY DR MOSS. NO S/S OF ACUTE DISTRESS AT THE TIME OF DISCHARGE.
[2019-03-06 12:26] VITALS: BP 125/71
== END 2019-03-06 12:27 | disposition home or self-care (01) ==
LOC: ER 12:13
DX: F41.9 Anxiety disorder, unspecified (principal); F17.200 Nicotine dependence, unspecified, uncomplicated; Z76.0 Encounter for issue of repeat prescription; Z79.899 Other long term (current) drug therapy
CPT/HCPCS: A4663